=== PATIENT | female | born 1995 | race Caucasian/White ===

== ENCOUNTER → 2016-09-03 | Outpatient (CLI) | payer BC ==
[2016-09-03 11:22] LABS: ABSOLUTE EOSINOPHILS # (AUTO) 0.1 10^3/uL (0.0-0.6); ABSOLUTE LYMPHOCYTES (AUTO) 2.6 10^3/uL (0.5-4.7); ABSOLUTE MONOCYTES (AUTO) 0.6 10^3/uL (0.1-1.4); ABSOLUTE NEUT (AUTO) 3.7 10^3/uL (1.7-8.2); BASOPHILS % (AUTO) 0.6 % (0-2); EOSINOPHILS % (AUTO) 1.3 % (0-6); HEMOGLOBIN 13.2 g/dL (12.0-15.5); HGB HCT DIFFERENCE 1.6; LYMPHOCYTES % (AUTO) 37.4 % (13-45); MEAN CORPUSCULAR HEMOGLOBIN 29.4 pg (27.0-33.4); MEAN CORPUSCULAR HGB CONC 34.7 g/dL (32.0-36.0); MEAN CORPUSCULAR VOLUME 85 fl (80-97); MONOCYTES % (AUTO) 8.3 % (3-13); RED BLOOD COUNT 4.48 10^6/uL (3.72-5.28); RED CELL DISTRIBUTION WIDTH 13.2 % (11.5-14.0); SEGMENTED NEUTROPHILS % (AUTO) 52.4 % (42-78)
[2016-09-03 11:45] LABS: ALANINE AMINOTRANSFERASE 26 U/L (9-52); ALKALINE PHOSPHATASE 55 U/L (38-126); ANION GAP 14 (5-19); ASPARTATE AMINO TRANSFERASE 22 U/L (14-36); BILIRUBIN,TOTAL 0.8 mg/dL (0.2-1.3); BLOOD UREA NITROGEN 9 mg/dL (7-20); CALCIUM 9.9 mg/dL (8.4-10.2); CARBON DIOXIDE 25 mmol/L (22-30); CHLORIDE 105 mmol/L (98-107); CREATININE RESULT 0.69 mg/dL (0.52-1.25); GLUCOSE 71 mg/dL (75-110); LIPASE 126.6 U/L (23-300); POTASSIUM 4.4 mmol/L (3.6-5.0); SODIUM 144.1 mmol/L (137-145); TOTAL PROTEIN 7.9 g/dL (6.3-8.2)
== END ==
LOC: OD 10:03
PROVIDERS: ATTEND Surgery
DX: R10.9 Unspecified abdominal pain (principal)
CPT/HCPCS: 36415; 80053; 83690; 84702; 85025

== ENCOUNTER → 2016-09-08 | Outpatient (CLI) | payer BC | LOC: RAD 07:51 | PROVIDERS: ATTEND Surgery | DX: R10.9 Unspecified abdominal pain (principal) | CPT/HCPCS: 74160 ==

== ENCOUNTER → 2016-09-27 | Outpatient (CLI) | payer BC | LOC: RAD 16:44 | PROVIDERS: ATTEND Physician Assistant | DX: R10.30 Lower abdominal pain, unspecified (principal) | CPT/HCPCS: 76856; 93976 ==

== ENCOUNTER 2016-09-28 12:24 | Day surgery (SDC) | payer BC ==
[~2016-09-28 12:24] MED LIST: CEFAZOLIN SODIUM 1 GM in DEXTROSE 5%-WATER 50 ML IV PRN; DEXAMETHASONE SOD PHOSPHATE INJ 4 MG/1 ML VIAL ONE; GLYCOPYRROLATE INJ 0.4 MG/2 ML VIAL ONE; KETOROLAC TROMETHAMINE 60 MG/2 ML SDV ONE; LACTATED RINGERS 1000 ML IV PRN; LIDOCAINE 2% INJ-PF (20 MG/ML) 10 ML AMPUL ONE; METOCLOPRAMIDE HCL INJ/PF 10 MG/2 ML SDV ONE; NEOSTIGMINE METHYLSULFATE 10 MG/10 ML VIAL ONE; ONDANSETRON HCL INJ/PF 4 MG/2 ML SDV ONE; ROCURONIUM BROMIDE INJ 50 MG/5 ML VIAL IV ONE; SUCCINYLCHOLINE CHLORIDE INJ 200 MG/10 ML VIAL ONE
[2016-09-28] MEDS ORDERED: HYDROMORPHONE HCL INJ/PF 2 MG/ML AMPULE ONE (15:52)
[2016-09-28] MEDS ORDERED: ACETAMINOPHEN 100 ML IV ONE (15:53)
[2016-09-28] MEDS ORDERED: PROPOFOL INJ 200 MG/20 ML VIAL IV ONE (15:53)
[2016-09-28] MEDS ORDERED: EPHEDRINE SULFATE INJ 50 MG/1 ML AMPULE ONE (15:53)
[2016-09-28] MEDS ORDERED: MIDAZOLAM 2 MG/2 ML INJ ONE (15:53)
[2016-09-28] MEDS: BUPIVACAINE HCL 0.25 % INJ/PF (2.5 MG/1 ML) 30 ML VIAL ONE ×2 (16:19→16:29)
[2016-09-28] MEDS ORDERED: DIPHENHYDRAMINE HCL 50 MG/ML VIAL IV PRN (16:34)
[2016-09-28] MEDS ORDERED: FENTANYL CITRATE INJ/PF 100 MCG/2 ML AMPUL IV PRN ×3 (16:34)
[2016-09-28] MEDS ORDERED: MEPERIDINE HCL/PF INJ 25 MG/1 ML DISP.SYRIN IV PRN (16:34)
[2016-09-28] MEDS ORDERED: MORPHINE SULFATE 10 MG/ML INJ IV PRN (16:34)
[2016-09-28] MEDS ORDERED: OXYCODONE-ACETAMINOPHEN 5-325 MG TABLET PO PRN ×3 (16:34→17:12)
[2016-09-28] MEDS ORDERED: PROMETHAZINE HCL INJ 25 MG/1 ML VIAL IV PRN ×2 (16:34)
[2016-09-28] MEDS ORDERED: ONDANSETRON HCL INJ/PF 4 MG/2 ML SDV IV PRN ×2 (16:34→17:12)
--- NOTE | 2016-09-28 17:09 | Operative Report ---
Operative Report DATE OF SURGERY: 09/28/16 PREOPERATIVE DIAGNOSIS: Biliary dyskinesia POSTOPERATIVE DIAGNOSIS: Biliary dyskinesia OPERATION: Laparoscopic cholecystectomy SURGEON: SONYA GONZALEZ ANESTHESIA: GA TISSUE REMOVED OR ALTERED: gb COMPLICATIONS: None ESTIMATED BLOOD LOSS: minimal INTRAOPERATIVE FINDINGS: Distended gallbladder. Normal-appearing liver normal- appearing anterior surface of the stomach, normal-appearing large bowel other than moderate distention. Normal-appearing appendix. Normal-appearing bilateral ovaries. Normal-appearing anterior abdominal wall. Normal-appearing small bowel. PROCEDURE: Informed consent was obtained. Patient was brought to the operating room placed operating table in supine position. After satisfactory induction of general anesthesia, patient's abdomen was prepped and draped in usual sterile fashion. A infraumbilical midline incision was made and dissection carried down to the fascia the peritoneal cavity entered without difficulty. Prabhakar trocar was inserted. Pneumoperitoneum produced good patient toleration. 5 mm trocar was placed in the subxiphoid location.Two 5 mm trochars were placed in the right subcostal location. Exploratory laparoscopy was performed first. The anterior abdominal wall appeared normal. Liver appeared normal. The gallbladder appeared distended. The stomach and first and second portion the duodenum appeared normal other than some smiled gaseous distention. The spleen appeared normal. The small bowel was not run but the most of it was visualized and it appeared normal. The colon was moderately distended throughout that otherwise appeared normal. The appendix was visualized and appeared normal. Both of the ovaries were visualized and they appeared normal. The gallbladder was grasped and retracted cephalad over the dome of the liver. The infundibulum of the gallbladder was grasped retracted laterally and inferiorly thus exposing calot's triangle. The cystic duct gallbladder junction was clearly identified and the cystic duct was clipped and divided. Cystic artery was likewise taken. The gallbladder was taken off the gallbladder bed using the hook electrocautery technique. The gallbladder was removed with an Endobag through the Prabhakar trocar site fascial defect. There was no bile spillage during the case. Hemostasis appeared excellent. All trochars were removed under the direct vision a laparoscope to ensure hemostasis. The Prabhakar trocar site fascial defect was closed with interrupted Vicryl sutures. All skin incisions were closed with subcuticular interrupted Monocryl sutures. Marcaine was injected at the port sites. Patient tolerated procedure well no apparent complications and was taken to the recovery area in stable condition.
[2016-09-28] MEDS ORDERED: RINGERS SOLUTION,LACTATED 1,000 ML IV PRN (17:12)
--- NOTE | 2016-09-28 17:12 | PDOC DISCHARGE SUMMARY ---
Discharge Summary (SDC) - Discharge Final Diagnosis: Biliary dyskinesia Date of Surgery: 09/28/16 Discharge Date: 09/28/16 Condition: Good Treatment or Instructions: Underwent laparoscopic cholecystectomy. May discharge the patient home when met discharge criteria. Follow-up with me in 2 weeks. Stay active at home but avoid strenuous activity. May shower in 2 days. Keep Steri-Strips on. Prescriptions: Oxycodone HCl/Acetaminophen [Percocet 5-325 mg Tablet] 1 tab PO ASDIR PRN #25 tablet PRN Reason: Discharge Diet: As Tolerated Discharge Activity: Activity As Tolerated - Stay active but avoid strenuous activity. Report the Following to Your Physician Immediately: Yellow Skin, Fever over 101 Degrees, Unusual Bleeding, Redness, Drainage-Foul Smelling
[2016-09-28] MEDS ORDERED: FENTANYL CITRATE INJ/PF 100 MCG/2 ML AMPUL ONE (17:21)
[2016-09-28] MEDS ORDERED: PROMETHAZINE HCL INJ 25 MG/1 ML VIAL ONE (19:05)
[2016-09-28 19:44] VITALS: BP 127/81
== END 2016-09-28 19:40 | disposition home or self-care (01) ==
LOC: OROUT 12:24
PROVIDERS: ATTEND Surgery
PROC: 0FT44ZZ Resection of Gallbladder, Percutaneous Endoscopic Approach (ICD-10-PCS; principal; 2016-09-28 14:30)
DX: K82.8 Other specified diseases of gallbladder (principal); F17.210 Nicotine dependence, cigarettes, uncomplicated
CPT/HCPCS: 81025; 88304 ×2; 47562; J2250; J0690; J3490 ×2; J1100; J1885; J3010; J2765; J1170; J2550; J0330; J2405; J2704; J0131; 790

== ENCOUNTER 2016-09-30 13:44 | Observation (INO) | payer BC ==
[2016-09-30] MEDS ORDERED: ONDANSETRON 4 MG TAB.RAPDIS PO ONE (14:12)
--- NOTE | 2016-09-30 14:14 | ER Document Report ---
ED Medical Screen (RME) - General Stated Complaint: VOMITING Mode of Arrival: Ambulatory Information source: Patient, Parent Notes: 20 y/o F presents to ED c/o n/v and generalized weakness this morning. Reports hx of laparoscopic cholecystectomy on 09/28/16. I have greeted and performed a rapid initial assessment of this patient. A comprehensive ED assessment and evaluation of the patient, analysis of test results and completion of the medical decision making process will be conducted by additional ED providers. TRAVEL OUTSIDE OF THE [place] IN LAST 30 DAYS: No - Related Data Allergies/Adverse Reactions: strawberry Allergy (Severe, Verified 09/30/16 14:09) N AND V Past Medical History - Social History Chew tobacco use (# tins/day): No Frequency of alcohol use: None Drug Abuse: None - Past Medical History Cardiac Medical History: Denies: Hx Coronary Artery Disease, Hx Heart Attack, Hx Hypertension Pulmonary Medical History: Denies: Hx Asthma, Hx Bronchitis, Hx COPD, Hx Pneumonia Neurological Medical History: Denies: Hx Cerebrovascular Accident, Hx Seizures Renal/ Medical History: Denies: Hx Peritoneal Dialysis GI Medical History: Reports: Hx Gastroesophageal Reflux Disease Musculoskeltal Medical History: Denies Hx Arthritis Past Surgical History: Denies: Hx Hysterectomy - Immunizations Immunizations up to date: Yes Hx Diphtheria, Pertussis, Tetanus Vaccination: No Physical Exam - Vital signs Vitals: Temp Pulse Resp BP Pulse Ox 97.7 F 79 16 115/70 98 09/30/16 14:07 09/30/16 14:07 09/30/16 14:09/30/16 14:07 09/30/16 14:07 - General General appearance: Alert In distress: None - Respiratory Respiratory status: No respiratory distress Course - Vital Signs Vital signs: Temp Pulse Resp BP Pulse Ox 97.7 F 79 16 115/70 98 09/30/16 14:07 09/30/16 14:09/30/16 14:09/30/16 14:07 09/30/16 14:07
[2016-09-30 14:43] LABS: ABSOLUTE EOSINOPHILS # (AUTO) 0.1 10^3/uL (0.0-0.6); ABSOLUTE LYMPHOCYTES (AUTO) 1.3 10^3/uL (0.5-4.7); ABSOLUTE MONOCYTES (AUTO) 0.4 10^3/uL (0.1-1.4); ABSOLUTE NEUT (AUTO) 3.9 10^3/uL (1.7-8.2); BASOPHILS % (AUTO) 0.5 % (0-2); EOSINOPHILS % (AUTO) 1.1 % (0-6); HEMATOCRIT 34.2 % (36.0-47.0); HEMOGLOBIN 11.8 g/dL (12.0-15.5); HGB HCT DIFFERENCE 1.2; LYMPHOCYTES % (AUTO) 23.5 % (13-45); MEAN CORPUSCULAR HEMOGLOBIN 29.9 pg (27.0-33.4); MEAN CORPUSCULAR HGB CONC 34.5 g/dL (32.0-36.0); MEAN CORPUSCULAR VOLUME 87 fl (80-97); MONOCYTES % (AUTO) 7.3 % (3-13); RED BLOOD COUNT 3.95 10^6/uL (3.72-5.28); RED CELL DISTRIBUTION WIDTH 13.6 % (11.5-14.0); SEGMENTED NEUTROPHILS % (AUTO) 67.6 % (42-78); WHITE BLOOD COUNT 5.7 10^3/uL (4.0-10.5)
[2016-09-30 14:54] LABS: APPEARANCE,URINE SLIGHTLY-CLOUDY; BILIRUBIN,URINE NEGATIVE (NEGATIVE); GLUCOSE, URINE NEGATIVE (NEGATIVE); KETONES,URINE NEGATIVE (NEGATIVE); LEUKOCYTE ESTERASE,URINE NEGATIVE (NEGATIVE); NITRITE,URINE NEGATIVE (NEGATIVE); PROTEIN,URINE NEGATIVE (NEGATIVE); URINE SPECIFIC GRAVITY 1.012
[2016-09-30 14:55] LABS: ALANINE AMINOTRANSFERASE 274 U/L (9-52); ALBUMIN 4.4 g/dL (3.5-5.0); ALKALINE PHOSPHATASE 65 U/L (38-126); ANION GAP 12 (5-19); ASPARTATE AMINO TRANSFERASE 355 U/L (14-36); BILIRUBIN,TOTAL 1.1 mg/dL (0.2-1.3); BLOOD UREA NITROGEN 7 mg/dL (7-20); CALCIUM 9.4 mg/dL (8.4-10.2); CARBON DIOXIDE 27 mmol/L (22-30); CHLORIDE 106 mmol/L (98-107); CREATININE RESULT 0.66 mg/dL (0.52-1.25); GLUCOSE 90 mg/dL (75-110); POTASSIUM 3.7 mmol/L (3.6-5.0); SODIUM 144.9 mmol/L (137-145); TOTAL PROTEIN 6.7 g/dL (6.3-8.2)
[2016-09-30] MEDS ORDERED: NORMAL SALINE 1000 ML 2,000 ML IV ONE (15:25)
--- NOTE | 2016-09-30 15:38 | ER Document Report ---
ED GI/ - General Chief Complaint: Vomiting Stated Complaint: VOMITING Mode of Arrival: Ambulatory Information source: Patient TRAVEL OUTSIDE OF THE [place] IN LAST 30 DAYS: No - HPI Patient complains to provider of: Abdominal pain, Vomiting Onset: This morning Timing/Duration: Gradual Quality of pain: Dull, Other - SORENESS Severity at maximum: Moderate Severity in ED: Moderate Context: Other - LAP. SANDY 3 DAYS AGO Location: Epigastric Associated symptoms: Nausea, Vomiting Exacerbated by: Food Relieved by: Denies Similar symptoms previously: No Recently seen / treated by doctor: Yes - LAP. SANDY 09/27 - Related Data Allergies/Adverse Reactions: strawberry Allergy (Severe, Verified 09/30/16 14:09) N AND V Past Medical History - General Information source: Patient, Parent - Social History Smoking Status: Current Every Day Smoker Chew tobacco use (# tins/day): No Smoking Education Provided: No Frequency of alcohol use: None Drug Abuse: None Lives with: Parents Family History: Reviewed & Not Pertinent Patient has suicidal ideation: No Patient has homicidal ideation: No - Past Medical History Cardiac Medical History: Denies: Hx Coronary Artery Disease, Hx Heart Attack, Hx Hypertension Pulmonary Medical History: Denies: Hx Asthma, Hx Bronchitis, Hx COPD, Hx Pneumonia Neurological Medical History: Denies: Hx Cerebrovascular Accident, Hx Seizures Endocrine Medical History: Reports: None Renal/ Medical History: Denies: Hx Peritoneal Dialysis GI Medical History: Reports: Hx Gastroesophageal Reflux Disease Musculoskeltal Medical History: Denies Hx Arthritis Past Surgical History: Reports: Hx Cholecystectomy. Denies: Hx Hysterectomy - Immunizations Immunizations up to date: Yes Hx Diphtheria, Pertussis, Tetanus Vaccination: No Review of Systems - Review of Systems Constitutional: No symptoms reported. denies: Chills, Fever EENT: No symptoms reported Cardiovascular: No symptoms reported Respiratory: No symptoms reported Gastrointestinal: See HPI Genitourinary: No symptoms reported Female Genitourinary: No symptoms reported Musculoskeletal: No symptoms reported Skin: No symptoms reported Neurological/Psychological: No symptoms reported Physical Exam - Vital signs Vitals: Temp Pulse Resp BP Pulse Ox 97.7 F 79 16 115/70 98 09/30/16 14:07 09/30/16 14:07 09/30/16 14:07 09/30/16 14:07 09/30/16 14:07 Interpretation: Normal. No: Tachycardic, Tachypneic, Febrile - General General appearance: Appears well, Alert In distress: None - HEENT Head: Normocephalic Eyes: Pale conjunctiva Ears: Normal Nasal: Normal Mouth/Lips: Normal Mucous membranes: Normal Pharynx: Normal Neck: Normal - Respiratory Respiratory status: No respiratory distress Breath sounds: Normal - Cardiovascular Rhythm: Regular Heart sounds: Normal auscultation Murmur: No - Abdominal Inspection: Fresh incision - x 4, HEALING Distension: No distension Bowel sounds: Hypoactive Tenderness: Tender - MILD, EPIGASTRIC - Extremities General upper extremity: Normal inspection General lower extremity: Normal inspection - Neurological Neuro grossly intact: Yes Cognition: Normal Orientation: AAOx4 - Psychological Associated symptoms: Normal affect, Normal mood - Skin Skin Temperature: Warm Skin Moisture: Dry Skin Color: Pale Skin Turgor: Elastic Course - Vital Signs Vital signs: Temp Pulse Resp BP Pulse Ox 98.6 F 79 18 114/76 98 09/30/16 19:08 09/30/16 19:08 09/30/16 19:08 09/30/16 19:08 09/30/16 19:08 - Laboratory Result Diagrams: 09/30/16 14:15 09/30/16 14:15 Laboratory results interpreted by me: 09/30/16 09/30/16 09/30/16 14:15 14:15 14:15 Hgb 11.8 L Hct 34.2 L AST 355 H ALT 274 H Urine Blood MODERATE H Urine Urobilinogen 2.0 H - Consults DR. GONZALEZ Time consulted: 16:30 Reason for consultation: 09/30/16 16:35 CASE DISCUSSED, HE SUGGESTS CT SCAN & CALL RESULTS. Discharge - Discharge Clinical Impression: Postoperative vomiting, Dehydration Condition: Good Disposition: ADMITTED OBSERVATION Admitting Provider: Surgicalist Unit Admitted: Surgical Floor
[2016-09-30] MEDS ORDERED: METOCLOPRAMIDE HCL 10 MG TABLET PO ONE (16:43)
[2016-09-30] MEDS ORDERED: METOCLOPRAMIDE HCL INJ/PF 10 MG/2 ML SDV IV ONE (16:59)
[2016-09-30] MEDS ORDERED: DIPHENHYDRAMINE HCL 50 MG/ML VIAL IV ONE (16:59)
[2016-09-30] MEDS ORDERED: HYDROMORPHONE HCL INJ/PF 2 MG/ML AMPULE IV ONE (18:56)
[2016-09-30] MEDS ORDERED: NA PHOS,M-B/NA PHOS,DI-BA (ADULT) 133 ML ENEMA PR SCH (21:00)
--- NOTE | 2016-09-30 21:03 | PDOC H&P ---
History of Present Illness Admission Date/PCP: CARRILLO MONZON PA-C History of Present Illness: KRIS GEE is a 20 year old female Status post laparoscopic cholecystectomy for biliary dyskinesia earlier this week. She did well initially however today noted upper abdominal discomfort the along with the multiple episodes of nausea and vomiting. She has not had a bowel movement since surgery. She denies any fever. Currently she is mainly sore in her upper abdomen due to her emesis. She denies any alcohol intake. She has been taking 1 Percocet about every 4 hours for pain. No additional pain medications. Past Medical History Cardiac Medical History: Denies: Coronary Artery Disease, Myocardial Infarction, Hypertension Pulmonary Medical History: Denies: Asthma, Bronchitis, Chronic Obstructive Pulmonary Disease (COPD), Pneumonia Neurological Medical History: Denies: Seizures Endocrine Medical History: Reports: None GI Medical History: Reports: Gastroesophageal Reflux Disease - History of gastritis noted the last year but no response with medications, Other - History of biliary dyskinesia. Status post laparoscopic cholecystectomy. Musculoskeltal Medical History: Denies: Arthritis Hematology: Denies: Anemia Past Surgical History Past Surgical History: Reports: Cholecystectomy Denies: Hysterectomy Social History Lives with: Parents Smoking Status: Current Every Day Smoker Family History Family History: Reviewed & Not Pertinent Parental Family History Reviewed: No Children Family History Reviewed: No Sibling(s) Family History Reviewed.: No Medication/Allergy Home Medications: Ondansetron [Zofran Odt 4 mg Tablet] 1 - 2 tab PO Q4HP PRN #10 tab.rapdis Medroxyprogesterone Acet [Depo-Provera Inj 150 mg/1 ml Vial] 150 mg IM ASDIR PRN 09/23/16 Naproxen Sodium [Aleve] 220 mg PO PRN PRN 09/23/16 Oxycodone HCl/Acetaminophen [Percocet 5-325 mg Tablet] 1 tab PO ASDIR PRN #25 tablet 09/28/16 Allergies/Adverse Reactions: strawberry Allergy (Severe, Verified 09/30/16 14:09) N AND V Physical Exam Vital Signs: Temp Pulse Resp BP Pulse Ox 98.6 F 79 18 114/76 98 09/30/16 19:08 09/30/16 19:08 09/30/16 19:08 09/30/16 19:08 09/30/16 19:08 Intake & Output 09/29/16 09/30/16 10/01/16 06:59 06:59 06:59 Weight 45.3 kg General appearance: PRESENT: no acute distress, cooperative Eye exam: PRESENT: other - Sclera anicteric Respiratory exam: PRESENT: clear to auscultation perfecto Cardiovascular exam: PRESENT: RRR GI/Abdominal exam: PRESENT: other - Soft, mild tenderness in the upper abdomen but no peritoneal signs. Wounds clean dry and intact, nondistended Extremities exam: PRESENT: other - No swelling Neurological exam: PRESENT: alert, awake Psychiatric exam: PRESENT: appropriate affect Skin exam: PRESENT: warm Results Laboratory Results: 09/30/16 14:15 09/30/16 14:15 09/30/16 09/30/16 09/30/16 14:15 14:15 14:15 WBC 5.7 RBC 3.95 Hgb 11.8 L Hct 34.2 L MCV 87 MCH 29.9 MCHC 34.5 RDW 13.6 Plt Count 199 Seg Neutrophils % 67.6 Lymphocytes % 23.5 Monocytes % 7.3 Eosinophils % 1.1 Basophils % 0.5 Absolute Neutrophils 3.9 Absolute Lymphocytes 1.3 Absolute Monocytes 0.4 Absolute Eosinophils 0.1 Absolute Basophils 0.0 Sodium 144.9 Potassium 3.7 Chloride 106 Carbon Dioxide 27 Anion Gap 12 BUN 7 Creatinine 0.66 Est GFR ( Amer) > 60 Est GFR (Non-Af Amer) > 60 Glucose 90 Calcium 9.4 Total Bilirubin 1.1 AST 355 H ALT 274 H Alkaline Phosphatase 65 Total Protein 6.7 Albumin 4.4 Lipase 67.0 Urine Color YELLOW Urine Appearance SLIGHTLY-CLOUDY Urine pH 6.0 Ur Specific Concepcion 1.012 Urine Protein NEGATIVE Urine Glucose (UA) NEGATIVE Urine Ketones NEGATIVE Urine Blood MODERATE H Urine Nitrite NEGATIVE Ur Leukocyte Esterase NEGATIVE Urine WBC (Auto) 3 Urine RBC (Auto) 1 Impressions: Abdomen CT 09/30/16 16:30 IMPRESSION: Expected postsurgical changes from recent cholecystectomy. No abscess or fluid collection. Assessment & Plan - Diagnosis (1) Nausea & vomiting Is this a current diagnosis for this admission?: YesPlan: Of unclear etiology. CT scan demonstrates postoperative changes only with no evidence of bile leak (no fluid in the felipe-hepatic region) and no biliary ductal dilatation. Her transaminases are elevated. I believe that sphincter of ODDI spasm is certainly in the differential diagnosis. I will admit the patient place her on IV fluids. I will obtain gastroenterology consultation if gastroenterology is available. Will repeat her liver function studies tomorrow morning. Will keep her nothing by mouth for now. Patient is constipated; therefore will give her a fleets enema tonight.
[2016-09-30] MEDS: DEXTROSE 5%-1/2 NORMAL SALINE 1,000 ML IV PRN (21:10)
[2016-09-30] MEDS: PANTOPRAZOLE SODIUM 40 MG VIAL IV SCH (22:48)
[2016-10-01] MEDS: HYDROMORPHONE HCL INJ/PF 2 MG/ML AMPULE IV PRN ×3 (03:32→14:46)
[2016-10-01] MEDS: DEXTROSE 5%-1/2 NORMAL SALINE 1,000 ML IV PRN (03:34)
[2016-10-01 07:31] LABS: ALBUMIN 3.8 g/dL (3.5-5.0); ANION GAP 9 (5-19); BLOOD UREA NITROGEN 3 mg/dL (7-20); CALCIUM 9.2 mg/dL (8.4-10.2); CARBON DIOXIDE 26 mmol/L (22-30); CHLORIDE 108 mmol/L (98-107); CREATININE RESULT 0.59 mg/dL (0.52-1.25); GLUCOSE 88 mg/dL (75-110); POTASSIUM 3.7 mmol/L (3.6-5.0); SODIUM 143.4 mmol/L (137-145); TOTAL PROTEIN 6.3 g/dL (6.3-8.2)
[2016-10-01 07:32] LABS: ALANINE AMINOTRANSFERASE 365 U/L (9-52); ALKALINE PHOSPHATASE 85 U/L (38-126); ASPARTATE AMINO TRANSFERASE 279 U/L (14-36); BILIRUBIN,TOTAL 1.2 mg/dL (0.2-1.3)
--- NOTE | 2016-10-01 08:51 | PDOC PROGRESS REPORT ---
Subjective Progress Note for:: 10/01/16 Subjective:: Feels much better. Mild upper abdominal discomfort. Nausea vomiting has resolved. Physical Exam Vital Signs: Temp Pulse Resp BP Pulse Ox 98.1 F 75 16 109/77 100 10/01/16 03:26 10/01/16 03:26 10/01/16 03:26 10/01/16 03:26 10/01/16 03:26 Intake & Output 09/30/16 10/01/16 10/02/16 06:59 06:59 06:59 Intake Total 0 Balance 0 General appearance: PRESENT: no acute distress Respiratory exam: PRESENT: clear to auscultation perfecto Cardiovascular exam: PRESENT: RRR GI/Abdominal exam: PRESENT: other - Soft, nondistended, mild upper abdominal tenderness no peritoneal signs. Results Laboratory Results: 10/01/16 06:56 10/01/16 06:56 Sodium 143.4 Potassium 3.7 Chloride 108 H Carbon Dioxide 26 Anion Gap 9 BUN 3 L Creatinine 0.59 Est GFR ( Amer) > 60 Est GFR (Non-Af Amer) > 60 Glucose 88 Calcium 9.2 Total Bilirubin 1.2 AST 279 H ALT 365 H Alkaline Phosphatase 85 Total Protein 6.3 Albumin 3.8 Impressions: Abdomen CT 09/30/16 16:30 IMPRESSION: Expected postsurgical changes from recent cholecystectomy. No abscess or fluid collection. Assessment & Plan - Diagnosis (1) Nausea & vomiting Is this a current diagnosis for this admission?: YesPlan: Symptomatically markedly improved. However her transaminases are still elevated. I will attempt to get a insurance claim auditor to see the patient today for possible sphincter of Oddi spasm. If the gastroenterology is not available today will allow the patient to eat and if she tolerates by mouth intake well we 'll plan to discharge patient home with outpatient evaluation with gastroenterology.
[2016-10-01] MEDS: PANTOPRAZOLE SODIUM 40 MG VIAL IV SCH (09:27)
[2016-10-01] MEDS: ONDANSETRON HCL INJ/PF 4 MG/2 ML SDV IV PRN ×2 (09:31→14:46)
[2016-10-01 12:38] VITALS: BP 119/67
--- NOTE | 2016-10-01 12:58 | DISCHARGE SUMMARY E ---
Discharge Summary NAME: KRIS GEE : 1995 AGE: 20Y ADMITTED: 09/30/2016 DISCHARGED: 10/01/2016 TRANSFER DIAGNOSES: 1. Nausea and vomiting. 2. Elevated liver function studies. 3. Possible sphincter of Oddi spasm. HOSPITAL COURSE: The patient was admitted, placed on IV fluids. She initially got much better with marked improvement of her abdominal pain and resolution of her nausea and vomiting. Gastroenterology was not available at our hospital and will not be available until late next week. Later this morning she developed nausea and vomiting again. The family requested transfer to [facility]. I discussed the case with Dr. Archer at [facility] who has agreed to take the patient in transfer. The patient had an uneventful laparoscopic cholecystectomy earlier this week. She had initially done well, but developed nausea and vomiting, and upper abdominal pain yesterday. She was brought in for evaluation. Abdominal pelvic CT scan demonstrated only postoperative changes with no fluid at the gallbladder fossa and no fluid in the perihepatic region, and no evidence of biliary ductal dilatation. He was noted with elevated transaminases in the 300s, although her total bilirubin and her alkaline phosphatase was normal. Followup laboratory studies the day after admission demonstrated persistent elevation of her transaminases. With these findings, I felt that she needed an ERCP. Unfortunately, the endoscopist who performs that procedure at our hospital [place] the [place]. She is now being transferred to [facility] in stable condition. TRANSFER MEDICATIONS: 1. Zofran 4 mg IV q.4 hours p.r.n. nausea. 2. Dilaudid 0.5 mg IV q.3 hours p.r.n. pain. 3. D5 1/2 normal saline at 100 mL an hour. DICTATING PHYSICIAN: WESLEY GONZALEZ M.D. [id number] [id number] ID: [id number] JOB#: [id number] ACCT: [id number] cc:WESLEY GONZALEZ M.D. > [facility]
== END 2016-10-01 15:36 | disposition short-term general hospital (02) ==
LOC: ER 13:44 → EH 20:48 → UNDOADMOB 21:27 → 2N 22:27
PROVIDERS: ADMIT Surgery; ATTEND Surgery
DX: R11.2 Nausea with vomiting, unspecified (principal); R79.89 Other specified abnormal findings of blood chemistry; K21.9 Gastro-esophageal reflux disease without esophagitis; F17.210 Nicotine dependence, cigarettes, uncomplicated
CPT/HCPCS: 99285; 96361; 96375; 96365; 36415 ×2; 83690; 85025; 81025; 80053 ×2; 81001; 74160; G0378 ×2; J1200; S0119; J2765; J1170 ×2; S0164 ×2; J2405; J7030

== ENCOUNTER → 2016-11-18 | Outpatient (CLI) | payer SELFPAY ==
[2016-11-18 20:09] LABS: CHLAM PCR NOT DETECTED (NOT DETECT)
== END ==
LOC: LAB 18:19
PROVIDERS: ATTEND Nurse Practitioner Acute Care
DX: R30.0 Dysuria (principal)
CPT/HCPCS: 87210; 87491; 87591

== ENCOUNTER 2017-04-07 11:44 | Emergency (ER) | payer OTHER, BC ==
[2017-04-07 11:57] VITALS: BP 108/68
[2017-04-07] MEDS ORDERED: IBUPROFEN 600 MG TABLET PO ONE (12:21)
[2017-04-07] MEDS ORDERED: CYCLOBENZAPRINE HCL 10 MG TABLET PO ONE (12:21)
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
== END 2017-04-07 12:30 | disposition home or self-care (01) ==
LOC: ER 11:44
DX: S16.1XXA Strain of muscle, fascia and tendon at neck level, initial encounter (principal); M54.5 Low back pain; V43.52XA Car driver injured in collision with other type car in traffic accident, initial encounter; Z71.6 Tobacco abuse counseling; F41.9 Anxiety disorder, unspecified; F17.210 Nicotine dependence, cigarettes, uncomplicated
CPT/HCPCS: 99283

== ENCOUNTER 2017-04-08 15:29 | Emergency (ER) | payer OTHER, BC ==
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
[2017-04-08 16:27] LABS: APPEARANCE,URINE CLEAR; BILIRUBIN,URINE NEGATIVE (NEGATIVE); GLUCOSE, URINE NEGATIVE (NEGATIVE); KETONES,URINE NEGATIVE (NEGATIVE); LEUKOCYTE ESTERASE,URINE NEGATIVE (NEGATIVE); NITRITE,URINE NEGATIVE (NEGATIVE); PROTEIN,URINE NEGATIVE (NEGATIVE); URINE SPECIFIC GRAVITY 1.006; UROBILINOGEN,URINE NEGATIVE mg/dL (<2.0)
[2017-04-08] MEDS ORDERED: IBUPROFEN 800 MG TABLET PO ONE (16:36)
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
[2017-04-08 17:48] VITALS: BP 102/60
== END 2017-04-08 17:48 | disposition home or self-care (01) ==
LOC: ER 15:29
DX: R10.2 Pelvic and perineal pain (principal); R10.9 Unspecified abdominal pain; V87.7XXA Person injured in collision between other specified motor vehicles (traffic), initial encounter
CPT/HCPCS: 76856; 81001; 99284

== ENCOUNTER 2017-05-06 08:09 | Emergency (ER) | payer BC, OTHER ==
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
[2017-05-06] MEDS ORDERED: NORMAL SALINE 1,000 ML IV ONE (08:42)
[2017-05-06] MEDS ORDERED: ONDANSETRON HCL INJ/PF 4 MG/2 ML SDV IV ONE (08:44)
[2017-05-06 08:56] LABS: ABSOLUTE EOSINOPHILS # (AUTO) 0.6 10^3/uL (0.0-0.6); ABSOLUTE LYMPHOCYTES (AUTO) 0.8 10^3/uL (0.5-4.7); ABSOLUTE MONOCYTES (AUTO) 0.5 10^3/uL (0.1-1.4); BASOPHILS % (AUTO) 0.2 % (0-2); EOSINOPHILS % (AUTO) 8.9 % (0-6); HEMATOCRIT 39.1 % (36.0-47.0); HEMOGLOBIN 13.8 g/dL (12.0-15.5); HGB HCT DIFFERENCE 2.3; MEAN CORPUSCULAR HEMOGLOBIN 30.8 pg (27.0-33.4); MEAN CORPUSCULAR HGB CONC 35.2 g/dL (32.0-36.0); MEAN CORPUSCULAR VOLUME 88 fl (80-97); MONOCYTES % (AUTO) 7.6 % (3-13); RED BLOOD COUNT 4.47 10^6/uL (3.72-5.28); RED CELL DISTRIBUTION WIDTH 12.9 % (11.5-14.0); SEGMENTED NEUTROPHILS % (AUTO) 71.3 % (42-78)
[2017-05-06 09:06] LABS: ALANINE AMINOTRANSFERASE 132 U/L (9-52); ALBUMIN 4.6 g/dL (3.5-5.0); ALKALINE PHOSPHATASE 74 U/L (38-126); ANION GAP 10 (5-19); ASPARTATE AMINO TRANSFERASE 71 U/L (14-36); BILIRUBIN,DIRECT 0.3 mg/dL (0.0-0.4); BILIRUBIN,TOTAL 0.7 mg/dL (0.2-1.3); BLOOD UREA NITROGEN 10 mg/dL (7-20); CALCIUM 9.5 mg/dL (8.4-10.2); CARBON DIOXIDE 26 mmol/L (22-30); CHLORIDE 105 mmol/L (98-107); GLUCOSE 84 mg/dL (75-110); LIPASE 54.8 U/L (23-300); POTASSIUM 4.4 mmol/L (3.6-5.0); SODIUM 141.2 mmol/L (137-145); TOTAL PROTEIN 7.6 g/dL (6.3-8.2)
[2017-05-06 09:31] LABS: APPEARANCE,URINE SLIGHTLY-CLOUDY; BILIRUBIN,URINE NEGATIVE (NEGATIVE); GLUCOSE, URINE NEGATIVE (NEGATIVE); KETONES,URINE 20 mg/dL (NEGATIVE); LEUKOCYTE ESTERASE,URINE NEGATIVE (NEGATIVE); NITRITE,URINE NEGATIVE (NEGATIVE); PROTEIN,URINE 30 mg/dL (NEGATIVE); URINE SPECIFIC GRAVITY 1.025
[2017-05-06] MEDS ORDERED: METOCLOPRAMIDE HCL INJ/PF 10 MG/2 ML SDV IV ONE (10:13)
[2017-05-06 11:30] VITALS: BP 100/54
== END 2017-05-06 10:45 | disposition home or self-care (01) ==
LOC: ER 08:09
DX: R11.2 Nausea with vomiting, unspecified (principal); R10.84 Generalized abdominal pain; R68.83 Chills (without fever); R51 Headache; Z90.49 Acquired absence of other specified parts of digestive tract; Z87.19 Personal history of other diseases of the digestive system
CPT/HCPCS: 99284; 96374; 96375; 36415; 83690; 85025; 81025; 80053; 81001; J2765; J2405; J7040

== ENCOUNTER → 2017-07-25 | Outpatient (CLI) | payer OTHER ==
[2017-07-26 13:33] LABS: CHLAM PCR NOT DETECTED (NOT DETECT)
== END ==
LOC: LAB 14:10
PROVIDERS: ATTEND Nurse Practitioner Acute Care
DX: N89.8 Other specified noninflammatory disorders of vagina (principal); R30.0 Dysuria
CPT/HCPCS: 87086; 87210; 87491; 87591

== ENCOUNTER 2017-07-30 19:49 | Emergency (ER) | payer BC, OTHER ==
[2017-07-30 19:58] VITALS: BP 115/65
--- NOTE | 2017-07-30 20:26 | ER Document Report ---
HPI - HPI Pain Level: 4 Notes: Patient is a 21-year-old female presents ED complaining of vaginal itching, scant discharge, discomfort with urination 5-6 days. Patient states that she was evaluated by her PCM on Tuesday for the same symptoms and was told that she had bacterial vaginosis with negative STD testing and a possible UTI. Patient states that she was sent home on clindamycin, which did not seem to be helping with her vaginal discharge. Patient denies any recent sexual intercourse. Patient states that she is otherwise eating and drinking without any difficulties. She is having normal bowel movements. Patient has not been having any other pain. Patient denies any IV drug use. Denies any headache, fever, expect URI, sore throat, chest pain, palpitations, syncope, cough, shortness of breath, wheeze, dyspnea, abdominal pain, nausea/vomiting/diarrhea, urinary retention, hematuria, loss of control of bowel or bladder, back pain, or rash. Pt states she has a h/o BV almost once monthly and does go to the women's clinic. Pt states she had a pelvic exam performed on Tuesday as well for her symptoms. - ROS Notes: REVIEW OF SYSTEMS: CONSTITUTIONAL : Denies fever, chills, or sweats. Denies recent illness. EENT: Denies eye, ear, throat, or mouth pain or symptoms. Denies nasal or sinus congestion or discharge. Denies throat, tongue, or mouth swelling or difficulty swallowing. CARDIOVASCULAR: Denies chest pain. Denies palpitations or racing or irregular heart beat. Denies ankle edema. RESPIRATORY: Denies cough, cold, or chest congestion. Denies shortness of breath, difficulty breathing, or wheezing. GASTROINTESTINAL: Denies abdominal pain or distention. Denies nausea, vomiting , or diarrhea. Denies blood in vomitus, stools, or per rectum. Denies black, tarry stools. Denies constipation. GENITOURINARY: see hpi FEMALE GENITOURINARY: see hpi MUSCULOSKELETAL: Denies back or neck pain or stiffness. Denies joint pain or swelling. SKIN: Denies rash, lesions or sores. NEUROLOGICAL: Denies confusion or altered mental status. Denies passing out or loss of consciousness. Denies dizziness or lightheadedness. Denies headache. Denies weakness or paralysis or loss of use of either side. Denies problems with gait or speech. Denies sensory loss, numbness, or tingling. ALL OTHER SYSTEMS REVIEWED AND NEGATIVE. Dictation was performed using [employer] voice recognition software - REPRODUCTIVE Reproductive: DENIES: : Past Medical History - Social History Smoking Status: Never Smoker Family History: Arthritis, COPD, DM, Malignancy, Other - chf Patient has suicidal ideation: No Patient has homicidal ideation: No - Past Medical History Cardiac Medical History: Denies: Hx Coronary Artery Disease, Hx Heart Attack, Hx Hypertension Pulmonary Medical History: Denies: Hx Asthma, Hx Bronchitis, Hx COPD, Hx Pneumonia Neurological Medical History: Denies: Hx Cerebrovascular Accident, Hx Seizures Renal/ Medical History: Reports: Hx Ovarian Cysts. Denies: Hx Peritoneal Dialysis GI Medical History: Reports: Hx Gastroesophageal Reflux Disease, Hx Colonoscopy , Hx Endoscopic Retrograde Cholangio Musculoskeltal Medical History: Denies Hx Arthritis Psychiatric Medical History: Reports: Hx Anxiety, Hx Attention Deficit Hyperactivity Disorder Past Surgical History: Reports: Hx Cholecystectomy. Denies: Hx Hysterectomy - Immunizations Immunizations up to date: Yes Hx Diphtheria, Pertussis, Tetanus Vaccination: No Vertical Provider Document - CONSTITUTIONAL Agree With Documented VS: Yes Notes: PHYSICAL EXAMINATION: GENERAL: Well-appearing, well-nourished and in no acute distress. A&Ox4 HEAD: Atraumatic, normocephalic. EYES: Pupils equal round and reactive to light, extraocular movements intact, sclera anicteric, conjunctiva are normal. ENT: EAC clear b/l. TM's intact b/l without erythema, fluid, or perforation. Nares patent and without discharge. oropharynx clear without exudates. No tonsilar hypertrophy or erythema. Moist mucous membranes. No sinus tenderness. NECK: Normal range of motion, supple without lymphadenopathy LUNGS: Breath sounds clear to auscultation bilaterally and equal. No wheezes rales or rhonchi. HEART: Regular rate and rhythm without murmurs, rubs, gallops. ABDOMEN: Soft, nontender, nondistended abdomen. No guarding, no rebound. No masses appreciated. Normal bowel sounds present. No CVA tenderness bilaterally. Musculoskeletal: FROM to passive/active. Strength 5+/5. Extremities: No cyanosis, clubbing, or edema b/l. Peripheral pulses 2+. Capillary refill less than 3 seconds. NEUROLOGICAL: Normal speech, normal gait. Normal sensory, motor exams PSYCH: Normal mood, normal affect. SKIN: Warm, Dry, normal turgor, no rashes or lesions noted. - INFECTION CONTROL TRAVEL OUTSIDE OF THE [place] IN LAST 30 DAYS: No - RESPIRATORY O2 Sat by Pulse Oximetry: 99 Course - Re-evaluation Re-evalutation: 07/30/17 20:39 Patient is an afebrile, well-hydrated, 21-year-old female who presents ED with bacterial vaginosis. Vitals are stable. PE is otherwise unremarkable. Patient performed a self swab for the wet mount as she had a pelvic exam performed on Tuesday and unremarkable workup otherwise (see hpi) including neg hcg. Patient states that she cannot tolerate metronidazole p.o. which is why she was on clindamycin. I will send her home with topical metronidazole to place intravaginally. Urinalysis was otherwise unremarkable at this time. Urine cultures pending. I will send her home with a prescription for Pyridium as well. Recheck with your PCM/women's clinic in 3-5 days. Return to the ED with any worsening/concerning symptoms otherwise as reviewed in discharge. Patient is in agreement. - Vital Signs Vital signs: Temp Pulse Resp BP Pulse Ox 98.1 F 81 18 115/65 99 07/30/17 19:57 07/30/17 19:57 07/30/17 19:57 07/30/17 19:57 07/30/17 19:57 Discharge - Discharge Clinical Impression: Bacterial vaginosis Condition: Stable Disposition: HOME, SELF-CARE Instructions: Metronidazole ([facility]) Additional Instructions: Maintain adequate fluid intake proper hygienic technique Tylenol/ibuprofen if needed Take medications as directed Use cream as directed Monitor for any worsening symptoms recheck with your PCM in 3-5 days Recheck with the women's clinic next week Return to the ED with any worsening symptoms and/or development of fever, headache, chest pain, palpitations, syncope, shortness of breath, trouble breathing, abdominal pain, n/v/d, blood in stool/urine, worsening vaginal/ pelvic pain or other worsening symptoms that are concerning to you. Prescriptions: Metronidazole [Metrogel 0.75% Vaginal Gel] 1 applic PV DAILY #1 tube Phenazopyridine HCl [Pyridium 200 mg Tablet] 200 mg PO TID #6 tablet Referrals: [facility] [Provider Group] - Follow up in 3-5 days CARRILLO OMNZON PA-C [Primary Care Provider] - Follow up in 3-5 days
[2017-07-30 20:31] LABS: APPEARANCE,URINE CLEAR; BILIRUBIN,URINE NEGATIVE (NEGATIVE); GLUCOSE, URINE NEGATIVE (NEGATIVE); KETONES,URINE NEGATIVE (NEGATIVE); LEUKOCYTE ESTERASE,URINE TRACE (NEGATIVE); NITRITE,URINE NEGATIVE (NEGATIVE); PROTEIN,URINE NEGATIVE (NEGATIVE); URINE SPECIFIC GRAVITY 1.011; UROBILINOGEN,URINE NEGATIVE mg/dL (<2.0)
[2017-07-30 20:34] LABS: BACTERIA,URINE 4+ /HPF; RBC,URINE 0-1 /HPF
== END 2017-07-30 21:16 | disposition home or self-care (01) ==
LOC: ER 19:49
DX: N76.0 Acute vaginitis (principal); B96.89 Other specified bacterial agents as the cause of diseases classified elsewhere
CPT/HCPCS: 81001; 87086; 87210; 99283

== ENCOUNTER 2017-10-29 21:28 | Emergency (ER) | payer BC ==
[2017-10-29] MEDS ORDERED: NORMAL SALINE 1000 ML 1,000 ML IV ONE (21:42)
[2017-10-29] MEDS ORDERED: ONDANSETRON HCL INJ/PF 4 MG/2 ML SDV IV ONE (21:42)
--- NOTE | 2017-10-29 22:22 | ER Document Report ---
ED General - General Chief Complaint: Vag Bleeding, +preg <12wks Stated Complaint: ABDOMINAL CRAMPING,VAGINAL BLEEDING Time Seen by Provider: 10/29/17 21:59 TRAVEL OUTSIDE OF THE [place] IN LAST 30 DAYS: No - HPI Notes: Patient is a 21-year-old female approximately 7 weeks who presents to the ED complaining of nausea, vomiting, intermittent epigastric burning, lower abdominal cramping, intermittent episodes of spotting 4 days. Patient states that she is still able to drink fluids, but has had decreased solid p.o. intake. Patient states that she does have a history of gastritis and the epigastric discomfort is not new to her. Patient denies any other significant past medical history. Patient states that she is urinating normally and having normal bowel movements. She denies any drug allergies. Patient states that she is a former smoker and has since quit since finding out that she is . Patient was evaluated at the [facility] department to get official testing a . Denies any headache, fever, neck pain, URI, sore throat, chest pain, palpitations, syncope, cough, shortness of breath, wheeze, dyspnea, diarrhea, urinary retention, dysuria, hematuria, back pain, loss of control of bowel or bladder, numbness/tingling, saddle anesthesia, muscle paralysis/weakness, or rash. - Related Data Allergies/Adverse Reactions: strawberry Allergy (Severe, Verified 07/30/17 19:51) N AND V Past Medical History - Social History Smoking Status: Former Smoker Family History: Arthritis, COPD, DM, Malignancy, Other - chf - Past Medical History Cardiac Medical History: Denies: Hx Coronary Artery Disease, Hx Heart Attack, Hx Hypertension Pulmonary Medical History: Denies: Hx Asthma, Hx Bronchitis, Hx COPD, Hx Pneumonia Neurological Medical History: Denies: Hx Cerebrovascular Accident, Hx Seizures Renal/ Medical History: Reports: Hx Ovarian Cysts. Denies: Hx Peritoneal Dialysis GI Medical History: Reports: Hx Gastroesophageal Reflux Disease, Hx Colonoscopy , Hx Endoscopic Retrograde Cholangio Musculoskeltal Medical History: Denies Hx Arthritis Psychiatric Medical History: Reports: Hx Anxiety, Hx Attention Deficit Hyperactivity Disorder Past Surgical History: Reports: Hx Cholecystectomy. Denies: Hx Hysterectomy - Immunizations Immunizations up to date: Yes Hx Diphtheria, Pertussis, Tetanus Vaccination: No Review of Systems - Review of Systems -: Yes All other systems reviewed and negative Physical Exam - Vital signs Vitals: Temp Pulse Resp BP Pulse Ox 98.6 F 82 16 120/68 99 10/29/17 21:34 10/29/17 21:34 10/29/17 21:34 10/29/17 21:34 10/29/17 21:34 - Notes Notes: PHYSICAL EXAMINATION: GENERAL: Well-appearing, well-nourished and in no acute distress. HEAD: Atraumatic, normocephalic. EYES: Pupils equal round and reactive to light, extraocular movements intact, sclera anicteric, conjunctiva are normal. ENT: Nares patent and without discharge. oropharynx clear without exudates. No tonsilar hypertrophy or erythema. Moist mucous membranes. NECK: Normal range of motion, supple without lymphadenopathy LUNGS: Breath sounds clear to auscultation bilaterally and equal. No wheezes rales or rhonchi. HEART: Regular rate and rhythm without murmurs, rubs, gallops. ABDOMEN: Soft, nondistended abdomen. No guarding, no rebound. No masses appreciated. Normal bowel sounds present. No CVA tenderness bilaterally. + mild tenderness to the epigastrum. + mild tenderness lower abdomen. No tenderness at [place] neg. Musculoskeletal: FROM to passive/active. Strength 5+/5. Extremities: No cyanosis, clubbing, or edema b/l. Peripheral pulses 2+. Capillary refill less than 3 seconds. NEUROLOGICAL: Normal speech, normal gait. Normal sensory, motor exams PSYCH: Normal mood, normal affect. SKIN: Warm, Dry, normal turgor, no rashes or lesions noted. Course - Re-evaluation Re-evalutation: 10/30/17 02:44 Patient is an afebrile, well-hydrated, 21-year-old female who presents to the ED with epigastric abdominal pain, suspect gastritis, as well as scant vaginal bleeding in early . Vitals are acceptable. PE is otherwise unremarkable. Patient is tolerating p.o. without any difficulties. CBC, CMP, urinalysis were unremarkable for any acute pathology. See hCG results. OB transvaginal ultrasound revealed an intrauterine with no complications. GI cocktail was given which improved epigastric discomfort. Patient also received fluids and Zofran. Low suspicion/risk for acute appendicitis, bowel obstruction, acute cholecystitis, acute cholangitis, perforated diverticulitis, incarcerated hernia, pancreatitis, perforated ulcer, peritonitis, sepsis, pelvic inflammatory disease, ectopic , tubo- ovarian abscess, ovarian torsion, or other systemic emergent condition at this time. Patient is aware that her condition can change from initial presentation and she needs to monitor symptoms closely and seek medical attention if any acute changes. I will send her home with a prescription for Zofran. Conservative measures otherwise for symptoms. Recheck with OBGYN in 3-5 days. Recheck with your PCM in 3-5 days. Return to the ED with any worsening/ concerning symptoms otherwise as reviewed in discharge. Patient is in agreement. - Vital Signs Vital signs: Temp Pulse Resp BP Pulse Ox 98.6 F 82 16 120/68 99 10/29/17 21:34 10/29/17 21:34 10/29/17 21:34 10/29/17 21:34 10/29/17 21:34 - Laboratory Result Diagrams: 10/29/17 23:05 10/29/17 23:05 Laboratory results interpreted by me: 10/29/17 23:05 Beta HCG, Quant 74421.00 H Discharge - Discharge Clinical Impression: Epigastric abdominal pain, Vaginal bleeding affecting early Condition: Stable Disposition: HOME, SELF-CARE Instructions: Antinausea Medication ([facility]), Low-Fat Diet ([facility]), Bleeding During Early ([facility]), Pelvic Pain in ([facility]) Additional Instructions: Maintain adequate fluid and food intake Avoid spices, caffeine, citrus, eating large meals, eating late at night. Zofran as needed tylenol if needed Monitor for any worsening symptoms Make sure you are staying hydrated enough to urinate and have normal BM's Recheck with your PCM/OBGYN in 3-5 days Consider consult with Gastroenterology for ongoing/worsening symptoms Return to the ED with any worsening symptoms and/or development of fever, headache, chest pain, palpitations, syncope, shortness of breath, trouble breathing, abdominal pain, n/v/d, blood in stool/urine, weakness, or other worsening symptoms that are concerning to you. Prescriptions: Ondansetron [Zofran Odt 4 mg Tablet] 1 - 2 tab PO Q4H PRN #15 tab.rapdis PRN Reason: For Nausea/Vomiting Referrals: [facility] [Provider Group] - Follow up in 3-5 days LISSET NICOLE MD [ACTIVE STAFF] - Follow up as needed
[2017-10-29 23:21] LABS: APPEARANCE,URINE SLIGHTLY-CLOUDY; BILIRUBIN,URINE NEGATIVE (NEGATIVE); COLOR,URINE YELLOW; GLUCOSE, URINE NEGATIVE (NEGATIVE); KETONES,URINE NEGATIVE (NEGATIVE); LEUKOCYTE ESTERASE,URINE NEGATIVE (NEGATIVE); NITRITE,URINE NEGATIVE (NEGATIVE); PROTEIN,URINE NEGATIVE (NEGATIVE); URINE SPECIFIC GRAVITY 1.009; UROBILINOGEN,URINE NEGATIVE mg/dL (<2.0)
[2017-10-29 23:22] LABS: ABSOLUTE BASOPHILS # (AUTO) 0.1 10^3/uL (0.0-0.2); ABSOLUTE EOSINOPHILS # (AUTO) 0.1 10^3/uL (0.0-0.6); ABSOLUTE LYMPHOCYTES (AUTO) 3.1 10^3/uL (0.5-4.7); ABSOLUTE MONOCYTES (AUTO) 0.7 10^3/uL (0.1-1.4); ABSOLUTE NEUT (AUTO) 5.9 10^3/uL (1.7-8.2); BASOPHILS % (AUTO) 0.6 % (0-2); EOSINOPHILS % (AUTO) 0.9 % (0-6); HEMOGLOBIN 13.5 g/dL (12.0-15.5); LYMPHOCYTES % (AUTO) 31.4 % (13-45); MEAN CORPUSCULAR HEMOGLOBIN 30.1 pg (27.0-33.4); MEAN CORPUSCULAR HGB CONC 34.6 g/dL (32.0-36.0); MEAN CORPUSCULAR VOLUME 87 fl (80-97); MONOCYTES % (AUTO) 7.3 % (3-13); PLATELET COUNT 210 10^3/uL (150-450); RED CELL DISTRIBUTION WIDTH 13.2 % (11.5-14.0); SEGMENTED NEUTROPHILS % (AUTO) 59.8 % (42-78); TOTAL CELLS COUNTED % (AUTO) 100 %; WHITE BLOOD COUNT 9.9 10^3/uL (4.0-10.5)
[2017-10-29 23:34] LABS: ALANINE AMINOTRANSFERASE 22 U/L (9-52); ALBUMIN 4.8 g/dL (3.5-5.0); ALKALINE PHOSPHATASE 59 U/L (38-126); ANION GAP 11 (5-19); ASPARTATE AMINO TRANSFERASE 19 U/L (14-36); BILIRUBIN,DIRECT 0.1 mg/dL (0.0-0.4); BILIRUBIN,TOTAL 0.4 mg/dL (0.2-1.3); BLOOD UREA NITROGEN 8 mg/dL (7-20); CALCIUM 9.9 mg/dL (8.4-10.2); CARBON DIOXIDE 26 mmol/L (22-30); CHLORIDE 101 mmol/L (98-107); GLUCOSE 85 mg/dL (75-110); LIPASE 97.3 U/L (23-300); POTASSIUM 3.6 mmol/L (3.6-5.0); SODIUM 138.3 mmol/L (137-145); TOTAL PROTEIN 7.3 g/dL (6.3-8.2)
--- NOTE | 2017-10-30 02:20 | RADIOLOGY REPORT (SQ) ---
EXAM DESCRIPTION: U/S OB TRANSVAG W/DOPPLER CLINICAL HISTORY: 21 years, Female, cramping, intermittent spotting, COMPARISON: 04/08/17 TECHNIQUE: Transvaginal LIMITATIONS: None. FINDINGS: Living intrauterine fetus measures 7w1d based on crown-rump length of 1.0 cm with MUNDO of 06/16/18. Cardiac activity is one 73 bpm. Cervical length is 3 cm. Ovaries are not directly visualized. No significant free fluid. IMPRESSION: Living intrauterine fetus measures 7w1d. No evidence of complication.
[2017-10-30] MEDS ORDERED: MAG HYDROX/AL HYDROX/SIMETH SUSP 30 ML UDCUP PO ONE (02:44)
[2017-10-30] MEDS ORDERED: METOCLOPRAMIDE HCL ORAL SOLN 10 MG/10 ML UDCUP PO ONE (02:44)
[2017-10-30] MEDS ORDERED: LIDOCAINE 2% VISCOUS SOLN 20 ML UDCUP PO ONE (02:44)
[2017-10-30 03:28] VITALS: BP 102/52
== END 2017-10-30 02:48 | disposition home or self-care (01) ==
LOC: ER 21:28
DX: O46.91 Antepartum hemorrhage, unspecified, first trimester (principal); O26.891 Other specified pregnancy related conditions, first trimester; R10.13 Epigastric pain; R11.2 Nausea with vomiting, unspecified; R10.30 Lower abdominal pain, unspecified; Z87.891 Personal history of nicotine dependence; Z3A.01 Less than 8 weeks gestation of pregnancy
CPT/HCPCS: 99284; 96360; 86900; 86901; 36415; 87086; 84702; 83690; 85025; 80053; 81001; 76817; 93976; J7030

== ENCOUNTER 2017-12-24 18:16 | Emergency (ER) | payer BC ==
[2017-12-24] MEDS ORDERED: NORMAL SALINE 1000 ML 1,000 ML IV ONE (18:20)
--- NOTE | 2017-12-24 18:20 | ER Document Report ---
ED Psych Disorder / Suicide - General Mode of Arrival: Ambulatory Information source: Patient TRAVEL OUTSIDE OF THE [place] IN LAST 30 DAYS: No <ADDISON CISNEROS - Last Filed: 12/24/17 18:46> <IBETH MUHAMMAD - Last Filed: 12/24/17 21:04> - General Stated Complaint: DIFFICULTY BREATHING Time Seen by Provider: 12/24/17 18:19 Notes: Patient is a 22-year-old female who presents to the emergency department today secondary to a panic attack with syncope after seeing a snake. Patient was carried in through the EMS door by two friends after having passing out. Patient is hyperventilating, uncooperative, and repeating "snake, snake, snake" . Friends state the patient did not hit her head when passing out. (ADDISON CISNEROS) - Related Data Allergies/Adverse Reactions: strawberry Allergy (Severe, Verified 07/30/17 19:51) N AND V Past Medical History - General Information source: Patient, [facility] Records - Social History Smoking Status: Never Smoker Cigarette use (# per day): No Frequency of alcohol use: None Drug Abuse: None Lives with: Family Family History: Arthritis, COPD, DM, Malignancy, Other - chf Renal/ Medical History: Reports: Hx Ovarian Cysts GI Medical History: Reports: Hx Gastroesophageal Reflux Disease, Hx Colonoscopy , Hx Endoscopic Retrograde Cholangio Psychiatric Medical History: Reports: Hx Anxiety, Hx Attention Deficit Hyperactivity Disorder Past Surgical History: Reports: Hx Cholecystectomy - Immunizations Immunizations up to date: Yes Hx Diphtheria, Pertussis, Tetanus Vaccination: No <ADDISON CISNEROS - Last Filed: 12/24/17 18:46> Review of Systems - Review of Systems Constitutional: No symptoms reported EENT: No symptoms reported Cardiovascular: No symptoms reported Respiratory: No symptoms reported Gastrointestinal: No symptoms reported Genitourinary: No symptoms reported Female Genitourinary: No symptoms reported Musculoskeletal: No symptoms reported Skin: No symptoms reported Hematologic/Lymphatic: No symptoms reported Neurological/Psychological: See HPI, Anxiety - "saw a snake" -: Yes All other systems reviewed and negative <ADDISON CISNEROS - Last Filed: 12/24/17 18:46> Physical Exam - Vital signs Interpretation: Tachycardic, Tachypneic - General General appearance: Lethargic - Respiratory Respiratory status: Tachypnea Breath sounds: Normal - Cardiovascular Rhythm: Regular, Tachycardia - Abdominal Inspection: Normal Tenderness: Nontender - Extremities General upper extremity: Normal inspection, Normal ROM General lower extremity: Normal inspection, Normal ROM - Neurological Rusty Coma Scale Eye Opening: To Pain [place] Coma Scale Verbal: Confused Rusty Coma Scale Motor: Localizes to Pain Rusty Coma Scale Total: 11 - Psychological Associated symptoms: Anxious <IBETH MUHAMMAD - Last Filed: 12/24/17 21:04> - Vital signs Vitals: Resp Pulse Ox 32 H 100 12/24/17 18:20 12/24/17 18:20 Course - Laboratory Result Diagrams: 12/24/17 18:20 12/24/17 18:20 <ADDISON CISNEROS - Last Filed: 12/24/17 18:46> - Laboratory Result Diagrams: 12/24/17 18:20 12/24/17 18:20 <IBETH MUHAMMAD - Last Filed: 12/24/17 21:04> - Re-evaluation Re-evalutation: 12/24/17 19:15 Patient is a 22-year-old female who presents initially unresponsive after passing out after hyperventilating 1 seeing a snake. Patient has returned to baseline. Blood work within normal limits. Taking p.o. without difficulty. Patient states that she is supposed to see a counselor for anxiety this week. Requests medication for anxiety. She will be discharged home with Vistaril. States that she is taken Zyprexa in the past but that did not agree with her. No distress. Stable for discharge. Return if worsening or concerning symptoms. (IBETH MUHAMMAD) - Vital Signs Vital signs: Temp Pulse Resp BP Pulse Ox 11 L 119/71 100 12/24/17 19:00 12/24/17 19:00 12/24/17 19:01 - Laboratory Laboratory results interpreted by me: 12/24/17 18:20 Carbon Dioxide 19 L Calcium 10.5 H Discharge <ADDISON CISNEROS - Last Filed: 12/24/17 18:46> <IBETH MUHAMMAD - Last Filed: 12/24/17 21:04> - Discharge Clinical Impression: Panic attack Condition: Stable Disposition: HOME, SELF-CARE Instructions: Panic Attack ([facility]) Additional Instructions: Please follow-up with your mental health provider as scheduled. Prescriptions: Hydroxyzine Pamoate [Vistaril 25 mg Capsule] 25 mg PO BIDP PRN #14 capsule PRN Reason: Scribe Attestation: 12/24/17 21:04 I personally performed the services described in the documentation, reviewed and edited the documentation which was dictated to the scribe in my presence, and it accurately records my words and actions. (IBETH MUHAMMAD) Scribe Documentation - Scribe Written by Rocky:: Rocky Lucas, 12/24/2017 1849 acting as scribe for :: Sherlyn <ADDISON CISNEROS - Last Filed: 12/24/17 18:46>
[2017-12-24] MEDS ORDERED: LORAZEPAM INJ 2 MG/1 ML VIAL IV ONE (18:22)
[2017-12-24] MEDS ORDERED: LORAZEPAM INJ 2 MG/1 ML VIAL ONE (18:25)
[2017-12-24 18:46] LABS: ABSOLUTE BASOPHILS # (AUTO) 0.1 10^3/uL (0.0-0.2); ABSOLUTE EOSINOPHILS # (AUTO) 0.1 10^3/uL (0.0-0.6); ABSOLUTE LYMPHOCYTES (AUTO) 4.2 10^3/uL (0.5-4.7); ABSOLUTE MONOCYTES (AUTO) 0.7 10^3/uL (0.1-1.4); BASOPHILS % (AUTO) 0.8 % (0-2); HEMOGLOBIN 13.2 g/dL (12.0-15.5); LYMPHOCYTES % (AUTO) 41.3 % (13-45); MEAN CORPUSCULAR HEMOGLOBIN 29.6 pg (27.0-33.4); MEAN CORPUSCULAR HGB CONC 34.7 g/dL (32.0-36.0); MEAN CORPUSCULAR VOLUME 85 fl (80-97); MONOCYTES % (AUTO) 7.1 % (3-13); PLATELET COUNT 284 10^3/uL (150-450); RED BLOOD COUNT 4.46 10^6/uL (3.72-5.28); SEGMENTED NEUTROPHILS % (AUTO) 49.8 % (42-78); TOTAL CELLS COUNTED % (AUTO) 100 %; WHITE BLOOD COUNT 10.1 10^3/uL (4.0-10.5)
[2017-12-24 19:03] LABS: ANION GAP 18 (5-19); BLOOD UREA NITROGEN 10 mg/dL (7-20); CALCIUM 10.5 mg/dL (8.4-10.2); CARBON DIOXIDE 19 mmol/L (22-30); CHLORIDE 105 mmol/L (98-107); GLUCOSE 106 mg/dL (75-110); POTASSIUM 3.6 mmol/L (3.6-5.0); SODIUM 142.2 mmol/L (137-145)
[2017-12-24 19:48] VITALS: BP 119/71
== END 2017-12-24 20:04 | disposition home or self-care (01) ==
LOC: ER 18:16
DX: F41.0 Panic disorder [episodic paroxysmal anxiety] (principal); R55 Syncope and collapse; Z91.018 Allergy to other foods
CPT/HCPCS: 99284; 96361; 96374; 36415; 84703; 85025; 80048; J2060; J7030

== ENCOUNTER 2018-02-01 18:24 | Emergency (ER) | payer BC ==
[2018-02-01 18:33] VITALS: BP 116/73
--- NOTE | 2018-02-01 19:32 | ER Document Report ---
ED Skin Rash/Insect Bite/Abscs - General Chief Complaint: Skin Problem Stated Complaint: SKIN ISSUE Time Seen by Provider: 02/01/18 19:16 Mode of Arrival: Ambulatory Information source: Patient Notes: 22-year-old female presented ED for complaint of bumps to bilateral arms back abdomen. She states she feels like symptoms crawling on and she is scratches at it and then the bumps appear. She states this started today. She states someone in her family has bedbug but she has not seen any bugs and they completely cleansed all the beds and linens. She states she was also at the beach recently. She states each time she looks down it seems like this more these bumps on her arms and legs. TRAVEL OUTSIDE OF THE [place] IN LAST 30 DAYS: No - HPI Patient complains to provider of: Possible insect bite Onset: This morning Onset/Duration: Gradual Quality of pain: No pain Severity: None Pain Level: Denies Skin Character: Rash - Small insect bites Exacerbated by: Denies Relieved by: Denies Similar symptoms previously: No Recently seen / treated by doctor: No - Related Data Allergies/Adverse Reactions: strawberry Allergy (Severe, Verified 02/01/18 18:26) N AND V Past Medical History - General Information source: Patient - Social History Smoking Status: Current Every Day Smoker Cigarette use (# per day): Yes Smoking Education Provided: Yes - 4 Minutes Frequency of alcohol use: None Drug Abuse: None Lives with: Family Family History: Arthritis, COPD, DM, Malignancy, Other - chf Patient has suicidal ideation: No Patient has homicidal ideation: No - Past Medical History Cardiac Medical History: Reports: None Pulmonary Medical History: Reports: None EENT Medical History: Reports: None Neurological Medical History: Reports: None Endocrine Medical History: Reports: None Renal/ Medical History: Reports: Hx Ovarian Cysts Malignancy Medical History: Reports: None GI Medical History: Reports: Hx Gastroesophageal Reflux Disease, Hx Colonoscopy , Hx Endoscopic Retrograde Cholangio Musculoskeltal Medical History: Reports None Skin Medical History: Reports None Psychiatric Medical History: Reports: Hx Anxiety, Hx Attention Deficit Hyperactivity Disorder Traumatic Medical History: Reports: None Infectious Medical History: Reports: None Past Surgical History: Reports: Hx Cholecystectomy - Immunizations Immunizations up to date: Yes Hx Diphtheria, Pertussis, Tetanus Vaccination: No Review of Systems - Review of Systems Constitutional: No symptoms reported EENT: No symptoms reported Cardiovascular: No symptoms reported Respiratory: No symptoms reported Gastrointestinal: No symptoms reported Genitourinary: No symptoms reported Female Genitourinary: No symptoms reported Musculoskeletal: No symptoms reported Skin: Rash - Insect bites Hematologic/Lymphatic: No symptoms reported Neurological/Psychological: No symptoms reported -: Yes All other systems reviewed and negative Physical Exam - Vital signs Vitals: Temp Pulse Resp BP Pulse Ox 98.9 F 78 18 116/73 100 02/01/18 18:30 02/01/18 18:30 02/01/18 18:30 02/01/18 18:30 02/01/18 18:30 Interpretation: Normal - General General appearance: Appears well, Alert - HEENT Head: Normocephalic, Atraumatic Eyes: Normal Pupils: PERRL - Respiratory Respiratory status: No respiratory distress Chest status: Nontender Breath sounds: Normal Chest palpation: Normal - Cardiovascular Rhythm: Regular Heart sounds: Normal auscultation Murmur: No - Abdominal Inspection: Normal Distension: No distension Bowel sounds: Normal Tenderness: Nontender Organomegaly: No organomegaly - Back Back: Normal, Nontender - Extremities General upper extremity: Normal inspection, Nontender, Normal color, Normal ROM , Normal temperature General lower extremity: Normal inspection, Nontender, Normal color, Normal ROM , Normal temperature, Normal weight bearing. No: Meng's sign - Neurological Neuro grossly intact: Yes Cognition: Normal Orientation: AAOx4 [place] Coma Scale Eye Opening: Spontaneous Rusty Coma Scale Verbal: Oriented [place] Coma Scale Motor: Obeys Commands [place] Coma Scale Total: 15 Speech: Normal Motor strength normal: LUE, RUE, LLE, RLE Sensory: Normal - Psychological Associated symptoms: Normal affect, Normal mood - Skin Skin Temperature: Warm Skin Moisture: Dry Skin Color: Normal Skin irregularity: Rash - Probable insect bites Location of irregularity: Abdomen, Chest, Back, Extremities Character of irregularity: Macular Course - Re-evaluation Re-evalutation: 02/01/18 20:59 Patient was given instructions for antihistamines and permethrin to treat the rash with possible insects. Patient was instructed to follow-up with her primary doctor and if she continues to have a problem to get a refill on this medication. She was given instructions on different insects and the cream to use. - Vital Signs Vital signs: Temp Pulse Resp BP Pulse Ox 98.9 F 78 18 116/73 100 02/01/18 18:30 02/01/18 18:30 02/01/18 18:30 02/01/18 18:30 02/01/18 18:30 Discharge - Discharge Clinical Impression: Insect bites Qualifiers: Encounter type: initial encounter Qualified Code(s): W57.XXXA - Bitten or stung by nonvenomous insect and other nonvenomous arthropods, initial encounter Condition: Stable Disposition: HOME, SELF-CARE Additional Instructions: Insect Bites You have been bitten by an insect. These bites can cause two types of swelling: an initial swelling due to insect saliva or injected poison, and a late reaction due to your body's allergic reaction. This initial local reaction may be uncomfortable but is not dangerous. Often there's an itchy "hive" at the bite location. This is treated with antihistamines, cold compresses, and resting the affected body part. The later reaction often develops about the second day. The entire area becomes very swollen, red, itchy, and tender. This is an allergic reaction. Your body is attacking the leftover insect saliva or venom. This type of allergy is unpleasant, but not dangerous. We treat this swelling with cortisone -type medicine. Sometimes we use antibiotics if we're worried about infection. Antihistamines help with the itch. If you develop a fever, chills, a red streak, or swollen glands in the area of the bite, infection may be starting. Return at once. Acetaminophen Acetaminophen may be taken for pain relief or fever control. It's much safer than aspirin, offering a wider range of "safe" dosages. It is safe during . Some brand names are Tylenol, Panadol, Datril, Anacin 3, Tempra, and Liquiprin. Acetaminophen can be repeated every four hours. The following are maximum recommended dosages: WEIGHT Dose Drops Elixir Chewable( 80mg) (LBS.) drprs=droppers tsp=teaspoon 6 40 mg .4 ml (1/2) 6-11 80 mg .8 ml (full) 1/2 tsp 1 tab 12-16 120 mg 1 1/2 drprs 3/4 tsp 1 1/2 tabs 17-23 160 mg 2 drprs 1 tsp 2 tabs 24-30 240 mg 3 drprs 1 1/2 tsp 3 tabs 30-35 320 mg 2 tsp 4 tabs 36-41 360 mg 2 1/4 tsp 4 1 /2 tabs 42-47 400 mg 2 1/2 tsp 5 tabs 48-53 480 mg 3 tsp 6 tabs 54-59 520 mg 3 1/4 tsp 6 1 /2 tabs 60-64 560 mg 3 1/2 tsp 7 tabs 65-70 600 mg 3 3/4 tsp 7 1 /2 tabs 71-76 640 mg 4 tsp 8 tabs 77-82 720 mg 4 1/2 tsp 9 tabs 83-88 800 mg 5 tsp 10 tabs >89 pounds or adults 650 mg to 900 mg Acetaminophen can be repeated every four hours. Maximum daily dose not to exceed 4000 mg. These maximum recommended dosages are slightly higher than the dosages written on the product container, but these dosages are very safe and well below the toxic dosage for acetaminophen. Anti-Mite Skin Creams Kwell (lindane 1%) and Elimite (permethrin 5%) kill insects such as fleas, ticks, lice, and mites. These creams are used for treating scabies, a mite that burrows into the skin. They can also be effective against lice. Apply the cream tonight to your entire body from the neck down. Don't allow children to apply the medicine themselves. Do NOT wash your hands after this treatment. Shower off 12 hours later. These medicines aren't harmful during or nursing. One treatment is usually enough to kill the mites; however, the itching will probably continue for another week. You may take diphenhydramine (Benadryl ) or another antihistamine medication for itching. Family members and intimate contacts may require treatment. Please return if you develop increasing swelling or redness, red streaks, tender lumps, fever, or drainage from a skin sore. FOLLOW-UP CARE: If you have been referred to a physician for follow-up care, call the physician s office for an appointment as you were instructed or within the next two days. If you experience worsening or a significant change in your symptoms, notify the physician immediately or return to the Emergency Department at any time for re-evaluation. Prescriptions: Permethrin [Elimite] 60 gm TP ONCE PRN #60 cream.gm. PRN Reason: Forms: Smoking Cessation Education Referrals: LEÓN GARCIA MD [Primary Care Provider] - Follow up as needed
== END 2018-02-01 19:37 | disposition home or self-care (01) ==
LOC: ER 18:24
DX: S40.862A Insect bite (nonvenomous) of left upper arm, initial encounter (principal); S40.861A Insect bite (nonvenomous) of right upper arm, initial encounter; S80.862A Insect bite (nonvenomous), left lower leg, initial encounter; S80.861A Insect bite (nonvenomous), right lower leg, initial encounter; W57.XXXA Bitten or stung by nonvenomous insect and other nonvenomous arthropods, initial encounter; F17.210 Nicotine dependence, cigarettes, uncomplicated; Z90.49 Acquired absence of other specified parts of digestive tract
CPT/HCPCS: 99282; 99406

== ENCOUNTER → 2018-03-22 | Outpatient (CLI) | payer BC ==
--- NOTE | 2018-03-22 11:53 | WOMENS IMAGING REPORT ---
EXAM DESCRIPTION: U/S PELVIS NON-OB COMPLETED DATE/TIME: 03/22/2018 8:47 am REASON FOR STUDY: LOWER ABDOMINAL PAIN R13.10 DYSPHAGIA, UNSPECIFIED COMPARISON: None. TECHNIQUE: Dynamic and static grayscale images acquired of the pelvis via transabdominal approach an d recorded on PACS. Additional selected color Doppler and spectral images recorded. LIMITATIONS: None. FINDINGS: UTERUS: Contour normal. No mass. ENDOMETRIAL STRIPE: No focal or generalized thickening. No masses. CERVIX: No nabothian cysts. RIGHT OVARY AND DOPPLER: Normal size. No worrisome masses. Normal arterial vascular flow without evid ence for torsion. LEFT OVARY AND DOPPLER: Normal size. No worrisome masses. Normal arterial vascular flow without evide nce for torsion. FREE FLUID: None noted. OTHER: No other significant finding. MEASUREMENTS: UTERUS: 8.0 x 3.2 x 5.2 cm ENDOMETRIAL STRIPE: 7 mm RIGHT OVARY: 3.3 x 2.1 x 2.8 cm LEFT OVARY: 3.9 x 1.7 x 3.0 cm IMPRESSION: NORMAL PELVIC ULTRASOUND BY TRANSABDOMINAL TECHNIQUE. TECHNICAL DOCUMENTATION: JOB ID: [id number] [employer]- All Rights Reserved Rev-01/13 Reading location - IP/workstation name: [email or web address]
== END ==
LOC: WI 07:18
PROVIDERS: ATTEND Physician Assistant Medical
DX: R10.30 Lower abdominal pain, unspecified (principal); R10.2 Pelvic and perineal pain; N94.10 Unspecified dyspareunia
CPT/HCPCS: 76856

== ENCOUNTER 2018-04-20 12:46 | Emergency (ER) | payer BC ==
[2018-04-20 12:59] VITALS: BP 117/69
--- NOTE | 2018-04-20 13:16 | ER Document Report ---
ED Medical Screen (RME) - General Chief Complaint: Pelvic Pain Stated Complaint: PELVIC PAIN Time Seen by Provider: 04/20/18 13:12 TRAVEL OUTSIDE OF THE [place] IN LAST 30 DAYS: No - HPI Notes: 04/20/18 13:15 Patient coming in with left lower quadrant nasal pain sharp shooting earlier this morning now resolved. States spotting at this time. Denies any discharge. - Related Data Allergies/Adverse Reactions: strawberry Allergy (Severe, Verified 04/20/18 12:52) N AND V Past Medical History - Past Medical History Cardiac Medical History: Denies: Hx Coronary Artery Disease, Hx Heart Attack, Hx Hypertension Pulmonary Medical History: Denies: Hx Asthma, Hx Bronchitis, Hx COPD, Hx Pneumonia Neurological Medical History: Denies: Hx Cerebrovascular Accident, Hx Seizures Renal/ Medical History: Reports: Hx Ovarian Cysts. Denies: Hx Peritoneal Dialysis GI Medical History: Reports: Hx Gastroesophageal Reflux Disease, Hx Colonoscopy , Hx Endoscopic Retrograde Cholangio Musculoskeltal Medical History: Denies Hx Arthritis Psychiatric Medical History: Reports: Hx Anxiety, Hx Attention Deficit Hyperactivity Disorder Past Surgical History: Reports: Hx Cholecystectomy. Denies: Hx Hysterectomy - Immunizations Immunizations up to date: Yes Hx Diphtheria, Pertussis, Tetanus Vaccination: No Review of Systems - Review of Systems Gastrointestinal: Abdominal pain Physical Exam - Vital signs Vitals: Temp Pulse Resp BP Pulse Ox 98.6 F 95 27 H 117/69 98 04/20/18 12:58 04/20/18 12:58 04/20/18 12:58 04/20/18 12:58 04/20/18 12:58 - Respiratory Respiratory status: No respiratory distress Chest status: Nontender Breath sounds: Normal Chest palpation: Normal Course - Vital Signs Vital signs: Temp Pulse Resp BP Pulse Ox 98.6 F 95 27 H 117/69 98 04/20/18 12:58 04/20/18 12:58 04/20/18 12:58 04/20/18 12:58 04/20/18 12:58 Doctor's Discharge - Discharge Referrals: TATO MCDANIEL PA-C [Primary Care Provider] - Follow up as needed
[2018-04-20 13:50] LABS: APPEARANCE,URINE SLIGHTLY-CLOUDY; BILIRUBIN,URINE NEGATIVE (NEGATIVE); COLOR,URINE YELLOW; GLUCOSE, URINE NEGATIVE (NEGATIVE); KETONES,URINE NEGATIVE (NEGATIVE); LEUKOCYTE ESTERASE,URINE NEGATIVE (NEGATIVE); NITRITE,URINE NEGATIVE (NEGATIVE); PROTEIN,URINE 30 mg/dL (NEGATIVE); URINE SPECIFIC GRAVITY 1.027
--- NOTE | 2018-04-20 15:47 | RADIOLOGY REPORT (SQ) ---
EXAM DESCRIPTION: U/S NON OB PEL TV W/DOPPLER COMPLETED DATE/TIME: 04/20/2018 3:34 pm REASON FOR STUDY: left adnexal pain COMPARISON: 03/22/2018 TECHNIQUE: Dynamic and static grayscale images acquired of the pelvis via transvaginal approach and recorded on PACS. Additional selected color Doppler and spectral images recorded. LIMITATIONS: None. FINDINGS: UTERUS: Contour normal. No mass. ENDOMETRIAL STRIPE: No focal or generalized thickening. No masses. CERVIX: No nabothian cysts. RIGHT OVARY AND DOPPLER: Normal size. No worrisome masses. Normal arterial vascular flow without evid ence for torsion. LEFT OVARY AND DOPPLER: Normal size. No worrisome masses. Normal arterial vascular flow without evide nce for torsion. FREE FLUID: Small amount. OTHER: No other significant finding. MEASUREMENTS: UTERUS: 6.5 x 4.3 x 3.6 cm ENDOMETRIAL STRIPE: 5 mm RIGHT OVARY: 2.9 x 2.6 x 1.5 cm LEFT OVARY: 2.9 x 1.9 x 1.7 cm IMPRESSION: NORMAL TRANSVAGINAL PELVIC ULTRASOUND. TECHNICAL DOCUMENTATION: JOB ID: [id number]- All Rights Reserved Rev-01/13 Reading location - IP/workstation name: [email or web address]
[2018-04-20 15:49] LABS: T.VAGINALIS (WET MOUNT) NO TRICHOMONAS SEEN
[2018-04-20 15:52] LABS: RBCS (WET MOUNT) RARE RBCS SEEN; WBCS (WET MOUNT) RARE WBCS SEEN; YEAST (WET MOUNT) NO YEAST SEEN
[2018-04-20] MEDS ORDERED: KETOROLAC TROMETHAMINE 60 MG/2 ML SDV IM ONE (16:07)
[2018-04-20 17:13] LABS: CHLAM PCR NOT DETECTED (NOT DETECT); GON PCR NOT DETECTED (NOT DETECT)
--- NOTE | 2018-04-20 17:21 | ER Document Report ---
ED General - General Chief Complaint: Pelvic Pain Stated Complaint: PELVIC PAIN Time Seen by Provider: 04/20/18 13:12 Mode of Arrival: Ambulatory Information source: Patient Notes: 22-year-old female 0 who presents to the emergency room with pelvic pain. Patient has had similar episodes in the past with sharp lower abdominal pains which last for 10-30 minutes and then gradually get better. She states that tonight's was particularly severe. At the time of my interview, she has no abdominal complaints. She is having some vaginal spotting at this time. She denies any vaginal discharge. TRAVEL OUTSIDE OF THE [place] IN LAST 30 DAYS: No - HPI Onset: Just prior to arrival Onset/Duration: Sudden Quality of pain: Dull Severity: Moderate Pain Level: 3 Associated symptoms: denies: Chest pain, Fever, Shortness of breath Exacerbated by: Denies Relieved by: Denies Similar symptoms previously: Yes Recently seen / treated by doctor: Yes - Related Data Allergies/Adverse Reactions: strawberry Allergy (Severe, Verified 04/20/18 12:52) N AND V Past Medical History - General Information source: Patient - Social History Smoking Status: Current Every Day Smoker Cigarette use (# per day): Yes - Half a pack per day Chew tobacco use (# tins/day): No Frequency of alcohol use: Rare Drug Abuse: None Lives with: Family Family History: Arthritis, COPD, DM, Malignancy, Other - chf Patient has suicidal ideation: No Patient has homicidal ideation: No - Past Medical History Cardiac Medical History: Denies: Hx Coronary Artery Disease, Hx Heart Attack, Hx Hypertension Pulmonary Medical History: Denies: Hx Asthma, Hx Bronchitis, Hx COPD, Hx Pneumonia Neurological Medical History: Denies: Hx Cerebrovascular Accident, Hx Seizures Renal/ Medical History: Reports: Hx Ovarian Cysts. Denies: Hx Peritoneal Dialysis GI Medical History: Reports: Hx Gastroesophageal Reflux Disease, Hx Colonoscopy , Hx Endoscopic Retrograde Cholangio Musculoskeletal Medical History: Denies Hx Arthritis Psychiatric Medical History: Reports: Hx Anxiety, Hx Attention Deficit Hyperactivity Disorder Past Surgical History: Reports: Hx Cholecystectomy. Denies: Hx Hysterectomy - Immunizations Immunizations up to date: Yes Hx Diphtheria, Pertussis, Tetanus Vaccination: No Review of Systems - Review of Systems Constitutional: denies: Chills, Fever EENT: No symptoms reported Cardiovascular: denies: Chest pain, Palpitations, Heart racing Respiratory: denies: Cough, Short of breath Gastrointestinal: Abdominal pain, Diarrhea. denies: Vomiting Genitourinary: No symptoms reported Female Genitourinary: See HPI Musculoskeletal: No symptoms reported Skin: No symptoms reported Hematologic/Lymphatic: No symptoms reported Neurological/Psychological: No symptoms reported Physical Exam - Vital signs Vitals: Temp Pulse Resp BP Pulse Ox 98.6 F 95 27 H 117/69 98 04/20/18 12:58 04/20/18 12:58 04/20/18 12:58 04/20/18 12:58 04/20/18 12:58 Notes: Physical exam: GENERAL: A 2-year-old female, alert and oriented 3, no acute distress. I HEAD: Atraumatic, normocephalic. EYES: Pupils equal round and reactive to light, extraocular movements intact, sclera anicteric, conjunctiva are normal. ENT: TMs normal, nares patent, oropharynx clear without exudates. Moist mucous membranes. NECK: Normal range of motion, supple without obvious mass or JVD. LUNGS: Breath sounds clear to auscultation bilaterally and equal. No wheezes rales or rhonchi. HEART: Regular rate and rhythm without murmurs, rubs or gallops. ABDOMEN: Soft, normoactive bowel sounds. No tenderness to palpation. No guarding, no rebound. No masses appreciated. Pelvic: Performed with PA student: External genitalia normal, cervical motion tenderness, no adnexal mass, no significant vaginal discharge. EXTREMITIES: Normal range of motion, no pitting or edema. No clubbing or cyanosis. NEUROLOGICAL: Cranial nerves II through XII grossly intact. Normal speech, moving all extremities. PSYCH: Normal mood, normal affect. SKIN: Warm, Dry, normal turgor, no rashes or lesions noted. Course - Vital Signs Vital signs: Temp Pulse Resp BP Pulse Ox 98.6 F 95 27 H 117/69 98 04/20/18 12:58 04/20/18 12:58 04/20/18 12:58 04/20/18 12:58 04/20/18 12:58 - Laboratory Laboratory results interpreted by me: 04/20/18 13:24 Urine Protein 30 H Urine Blood LARGE H Urine Urobilinogen 2.0 H - Diagnostic Test Radiology reviewed: Image reviewed, Reports reviewed - Pelvic ultrasound shows normal anatomy without any evidence of ovarian cysts. Discharge - Discharge Clinical Impression: Pelvic pain Condition: Stable Disposition: HOME, SELF-CARE Additional Instructions: As we discussed, the ultrasound of the ovaries and the uterus look quite good. Your blood tests were good as well. The home companion will be able to see these results as they are connected to this computer system. Follow-up as planned and keep your appointment with the home companion. The only labs not back yet or the cultures and we will call you if they are positive. Return to the emergency room for worsening pain, fever, vomiting or any concerns or getting worse. Forms: Return to School Referrals: TATO MCDANIEL PA-C [Primary Care Provider] - Follow up as needed ALVAREZ BARFIELD MD [ACTIVE STAFF] - Follow up as needed ([facility] is the number [facility]: Keep your appointment as planned.)
== END 2018-04-20 17:55 | disposition home or self-care (01) ==
LOC: ER 12:46
DX: R10.2 Pelvic and perineal pain (principal); R19.7 Diarrhea, unspecified; F17.210 Nicotine dependence, cigarettes, uncomplicated; Z91.018 Allergy to other foods; Z87.42 Personal history of other diseases of the female genital tract; Z87.19 Personal history of other diseases of the digestive system; Z90.49 Acquired absence of other specified parts of digestive tract
CPT/HCPCS: 99284; 96372; 87210; 81025; 81001; 87491; 87591; 76830; 93976; J1885

== ENCOUNTER 2018-10-12 22:02 | Emergency (ER) | payer BC ==
[2018-10-12 23:08] LABS: ABSOLUTE EOSINOPHILS # (AUTO) 0.1 10^3/uL (0.0-0.6); ABSOLUTE LYMPHOCYTES (AUTO) 2.7 10^3/uL (0.5-4.7); ABSOLUTE MONOCYTES (AUTO) 0.5 10^3/uL (0.1-1.4); ABSOLUTE NEUT (AUTO) 6.5 10^3/uL (1.7-8.2); BASOPHILS % (AUTO) 0.5 % (0-2); EOSINOPHILS % (AUTO) 0.7 % (0-6); HEMATOCRIT 36.7 % (36.0-47.0); HEMOGLOBIN 12.7 g/dL (12.0-15.5); LYMPHOCYTES % (AUTO) 27.3 % (13-45); MEAN CORPUSCULAR HEMOGLOBIN 29.8 pg (27.0-33.4); MEAN CORPUSCULAR HGB CONC 34.6 g/dL (32.0-36.0); MEAN CORPUSCULAR VOLUME 86 fl (80-97); MONOCYTES % (AUTO) 5.4 % (3-13); PLATELET COUNT 228 10^3/uL (150-450); RED BLOOD COUNT 4.26 10^6/uL (3.72-5.28); RED CELL DISTRIBUTION WIDTH 13.1 % (11.5-14.0); SEGMENTED NEUTROPHILS % (AUTO) 66.1 % (42-78); TOTAL CELLS COUNTED % (AUTO) 100 %; WHITE BLOOD COUNT 9.9 10^3/uL (4.0-10.5)
[2018-10-12 23:32] LABS: ALANINE AMINOTRANSFERASE 21 U/L (9-52); ALBUMIN 4.8 g/dL (3.5-5.0); ALKALINE PHOSPHATASE 66 U/L (38-126); ANION GAP 9 (5-19); ASPARTATE AMINO TRANSFERASE 20 U/L (14-36); BILIRUBIN,DIRECT 0.1 mg/dL (0.0-0.4); BILIRUBIN,TOTAL 0.5 mg/dL (0.2-1.3); BLOOD UREA NITROGEN 11 mg/dL (7-20); CALCIUM 9.7 mg/dL (8.4-10.2); CARBON DIOXIDE 29 mmol/L (22-30); CHLORIDE 105 mmol/L (98-107); GLUCOSE 85 mg/dL (75-110); POTASSIUM 3.9 mmol/L (3.6-5.0); SODIUM 142.7 mmol/L (137-145); TOTAL PROTEIN 7.3 g/dL (6.3-8.2)
--- NOTE | 2018-10-12 23:51 | RADIOLOGY REPORT (SQ) ---
CLINICAL HISTORY: preg, bleeding, lower ab pain COMPARISON: None. TECHNIQUE: US TRANSVAGINAL on 10/12/2018 10:44 PM BACKFILLER FINDINGS: The uterus measures 6.8 cm in length. There is no evidence of IUP. Right ovary measures 3.1 x 3.2 x 2.4 cm and contains a 1.7 x 2.5 x 1.5 cm cyst with small amount of debris within. Left ovary measures 3.4 x 1.8 x 1.9 cm there is there is patent flow to both ovaries. There is small amount of free pelvic fluid. Adnexa. IMPRESSION: No evidence of an IUP. A definite ectopic is not seen nor cannot be excluded.
[2018-10-13] MEDS ORDERED: MAG HYDROX/AL HYDROX/SIMETH SUSP 30 ML UDCUP PO ONE (00:26)
[2018-10-13] MEDS ORDERED: LIDOCAINE 2% VISCOUS SOLN 20 ML UDCUP PO ONE (00:26)
[2018-10-13] MEDS ORDERED: FAMOTIDINE 20 MG TABLET PO ONE (00:26)
[2018-10-13] MEDS ORDERED: SUCRALFATE 1 GM TABLET PO ONE (00:26)
[2018-10-13] MEDS ORDERED: METOCLOPRAMIDE HCL ORAL SOLN 10 MG/10 ML UDCUP PO ONE (00:26)
--- NOTE | 2018-10-13 00:28 | ER Document Report ---
ED General - General Chief Complaint: Abdominal Cramping Stated Complaint: ABDOMINAL PAIN Time Seen by Provider: 10/12/18 22:40 Primary Care Provider: TATO MCDANIEL PA-C [Primary Care Provider] - Follow up in 3-5 days Notes: Patient is a 22-year-old female with a past medical history of gastritis, prior cholecystectomy 2 years ago, presents with 10-12 hours of upper abdominal pain with associated nausea and vomiting. Abdominal pain is described as an aching, burning pain that has gradually improved since onset. Patient states that her symptoms started shortly after waking up and have progressed throughout the day. Nothing seems to improve her symptoms. Any attempt of p.o. intake worsens her symptoms. Has had similar symptoms in the past with gastritis although states that she was very concerned this could be related to a positive test that she took at home earlier today. She has not seen her primary care physician regarding today's concerns. TRAVEL OUTSIDE OF THE [place] IN LAST 30 DAYS: No - Related Data Allergies/Adverse Reactions: strawberry Allergy (Severe, Verified 04/20/18 12:52) N AND V Past Medical History - General Information source: Patient - Social History Smoking Status: Current Every Day Smoker Frequency of alcohol use: Occasional Drug Abuse: None Lives with: Spouse/Significant other Family History: Arthritis, COPD, DM, Malignancy, Other - chf Patient has suicidal ideation: No Patient has homicidal ideation: No - Past Medical History Cardiac Medical History: Denies: Hx Coronary Artery Disease, Hx Heart Attack, Hx Hypertension Pulmonary Medical History: Denies: Hx Asthma, Hx Bronchitis, Hx COPD, Hx Pneumonia Neurological Medical History: Denies: Hx Cerebrovascular Accident, Hx Seizures Renal/ Medical History: Reports: Hx Ovarian Cysts. Denies: Hx Peritoneal Dialysis GI Medical History: Reports: Hx Gastroesophageal Reflux Disease, Hx Colonoscopy, Hx Endoscopic Retrograde Cholangio Musculoskeletal Medical History: Denies Hx Arthritis Psychiatric Medical History: Reports: Hx Anxiety, Hx Attention Deficit Hyperactivity Disorder Past Surgical History: Reports: Hx Cholecystectomy. Denies: Hx Hysterectomy - Immunizations Immunizations up to date: Yes Hx Diphtheria, Pertussis, Tetanus Vaccination: No Review of Systems - Review of Systems Notes: Constitutional: Negative for fever. HENT: Negative for sore throat. Eyes: Negative for visual changes. Cardiovascular: Negative for chest pain. Respiratory: Negative for shortness of breath. Gastrointestinal: Positive for upper abdominal pain, nausea and vomiting Genitourinary: Negative for dysuria. Musculoskeletal: Negative for back pain. Skin: Negative for rash. Neurological: Negative for headaches, weakness or numbness. 10 point ROS negative except as marked above and in HPI. Physical Exam - Vital signs Vitals: Temp Pulse Resp BP Pulse Ox 98.4 F 71 16 135/79 H 99 10/12/18 22:35 10/12/18 22:35 10/12/18 22:35 10/12/18 22:35 10/12/18 22:35 Interpretation: Normal Notes: PHYSICAL EXAMINATION: GENERAL: Well-appearing, well-nourished and in no acute distress. HEAD: Atraumatic, normocephalic. EYES: Pupils equal round and reactive to light, extraocular movements intact, sclera anicteric, conjunctiva are normal. ENT: nares patent, oropharynx clear without exudates. Moist mucous membranes. NECK: Normal range of motion, supple without lymphadenopathy LUNGS: Breath sounds clear to auscultation bilaterally and equal. No wheezes rales or rhonchi. HEART: Regular rate and rhythm without murmurs ABDOMEN: Soft, mild epigastric abdominal discomfort on palpation but no other localized areas of tenderness, normoactive bowel sounds. No guarding, no rebound. No masses appreciated. EXTREMITIES: Normal range of motion, no pitting or edema. No cyanosis. NEUROLOGICAL: No focal neurological deficits. Moves all extremities spontaneously and on command. PSYCH: Normal mood, normal affect. SKIN: Warm, Dry, normal turgor, no rashes or lesions noted. Course - Re-evaluation Re-evalutation: 10/13/18 00:25 Patient presents with epigastric abdominal pain with associated nausea. Patient initially was concerned that she was although we have confirmed that the patient is not . Transvaginal ultrasound likewise unremarkable. Patient has no focal abdominal tenderness on examination. Patient is 2 years status post cholecystectomy removing biliary pathology from differential. Lipase is normal. No LFT changes. Based on history and exam, I do not suspect ACS, pulmonary embolus, SBO, mesenteric ischemia, acute pancreatitis, biliary pathology, or an abdominal aortic dissection. Patient has had improvement of symptoms here with a GI cocktail. At this time will discharge with return precautions and follow-up recommendations. Verbal discharge instructions given a the bedside and opportunity for questions given. Medication warnings reviewed. Patient is in agreement with this plan and has verbalized understanding of return precautions and the need for primary care follow-up in the next 24-72 hours. - Vital Signs Vital signs: Temp Pulse Resp BP Pulse Ox 98.4 F 71 16 135/79 H 99 10/12/18 22:35 10/12/18 22:35 10/12/18 22:35 10/12/18 22:35 10/12/18 22:35 - Laboratory Result Diagrams: 10/12/18 23:00 10/12/18 23:00 - Diagnostic Test Radiology reviewed: Reports reviewed Discharge - Discharge Clinical Impression: Epigastric abdominal pain, Nausea Gastritis Qualifiers: Gastritis type: unspecified gastritis Chronicity: acute Gastritis bleeding: without bleeding Qualified Code(s): K29.00 - Acute gastritis without bleeding Condition: Good Disposition: HOME, SELF-CARE Additional Instructions: Your symptoms appear to be most consistent with stomach or upper intestinal irritation. Please begin taking famotidine 40 mg in the morning and 40 mg at night. Take Carafate prior to meals. You may also take medicine such as Pepto- Bismol or Tums to assist with your pain. Please return to emergency department immediately if you have worsening of your pain, shortness of breath, vomiting, become unable to exert yourself due to pain or difficulty breathing, you pass out, or have any pain that radiates into your arms, jaw, or back. Please also return if you have any additional symptoms that are concerning to you. As we have discussed, the most important thing is lifestyle changes. You need to avoid smoking, sodas, tea, coffee, alcohol, spicy foods, and acidic foods such as citrus fruits, tomato based products, berries, and most fruit juices. Prescriptions: Famotidine 40 mg PO BID #60 tablet Sucralfate [Carafate 1 gm Tablet] 1 gm PO ACHS #120 tablet Referrals: TATO MCDANIEL PA-C [Primary Care Provider] - Follow up in 3-5 days
[2018-10-13 00:46] LABS: LIPASE 94.9 U/L (23-300)
[2018-10-13 01:24] VITALS: BP 111/74
== END 2018-10-13 01:24 | disposition home or self-care (01) ==
LOC: ER 22:02
DX: K29.00 Acute gastritis without bleeding (principal); R10.13 Epigastric pain; R11.2 Nausea with vomiting, unspecified; F17.200 Nicotine dependence, unspecified, uncomplicated; Z32.02 Encounter for pregnancy test, result negative; Z90.49 Acquired absence of other specified parts of digestive tract; Z87.19 Personal history of other diseases of the digestive system; Z91.018 Allergy to other foods
CPT/HCPCS: 99284; 36415; 84702; 83690; 85025; 80053; 76817; J3490

== ENCOUNTER 2019-02-24 15:18 | Emergency (ER) | payer BC ==
[2019-02-24] MEDS ORDERED: PROMETHAZINE HCL 25 MG TABLET PO ONE (15:42)
[2019-02-24] MEDS ORDERED: DIPHENHYDRAMINE HCL 25 MG CAPSULE PO ONE (15:42)
--- NOTE | 2019-02-24 15:46 | ER Document Report ---
ED Medical Screen (RME) - General Chief Complaint: Anxiety Stated Complaint: ANXIETY Time Seen by Provider: 02/24/19 15:36 Primary Care Provider: TATO MCDANIEL PA-C [Primary Care Provider] - Follow up as needed Mode of Arrival: Ambulatory Information source: Patient Notes: Patient presents to the emergency department with complaints of fingers tingling heart racing. Patient has history of anxiety. She was on medication several years ago but they gave her nightmares so she quit taking them. Patient also reports that her dog was put down on Tuesday, Patient also reports that she received a B12 injection today at work. She reports the clinic was short for their $goal so she went ahead and bought an injection. EMS was contacted they did evaluate her. Patient is talking very quickly. Complaints of other symptoms such as fever vomiting diarrhea but reports some nausea. Man in the room with her says she has not had anything to eat since Tuesday. I have greeted and performed a rapid initial assessment of this patient. A comprehensive ED assessment and evaluation of the patient, analysis of test results and completion of the medical decision making process will be conducted by additional ED providers. Dictation of this chart was performed using voice recognition software; therefore, there may be some unintended grammatical errors. TRAVEL OUTSIDE OF THE [place] IN LAST 30 DAYS: No - Related Data Allergies/Adverse Reactions: strawberry Allergy (Severe, Verified 02/24/19 15:20) N AND V Past Medical History - Past Medical History Cardiac Medical History: Denies: Hx Coronary Artery Disease, Hx Heart Attack, Hx Hypertension Pulmonary Medical History: Denies: Hx Asthma, Hx Bronchitis, Hx COPD, Hx Pneumonia Neurological Medical History: Denies: Hx Cerebrovascular Accident, Hx Seizures Renal/ Medical History: Reports: Hx Ovarian Cysts. Denies: Hx Peritoneal Dialysis GI Medical History: Reports: Hx Gastroesophageal Reflux Disease, Hx Colonoscopy, Hx Endoscopic Retrograde Cholangio Musculoskeltal Medical History: Denies Hx Arthritis Psychiatric Medical History: Reports: Hx Anxiety, Hx Attention Deficit Hyperactivity Disorder Past Surgical History: Reports: Hx Cholecystectomy. Denies: Hx Hysterectomy - Immunizations Immunizations up to date: Yes Hx Diphtheria, Pertussis, Tetanus Vaccination: No Physical Exam - Vital signs Vitals: Temp Pulse Resp BP Pulse Ox 98.1 F 107 H 16 141/75 H 98 02/24/19 15:23 02/24/19 15:23 02/24/19 15:23 02/24/19 15:23 02/24/19 15:23 Course - Vital Signs Vital signs: Temp Pulse Resp BP Pulse Ox 98.1 F 107 H 16 141/75 H 98 02/24/19 15:23 02/24/19 15:23 02/24/19 15:23 02/24/19 15:23 02/24/19 15:23 Doctor's Discharge - Discharge Referrals: TATO MCDANIEL PA-C [Primary Care Provider] - Follow up as needed
--- NOTE | 2019-02-24 16:32 | ER Document Report ---
ED General - General Chief Complaint: Anxiety Stated Complaint: ANXIETY Time Seen by Provider: 02/24/19 15:36 Primary Care Provider: TATO MCDANIEL PA-C [Primary Care Provider] - Follow up in 3-5 days Mode of Arrival: Ambulatory TRAVEL OUTSIDE OF THE [place] IN LAST 30 DAYS: No - HPI Notes: 23 year old female to the ED with C/O possible allergic reaction and anxiety attack. 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 She states that after that she started to feel like her heart was racing. She left work and then the heart racing got worse, she started to feel worse. States that she had worsening chest tightness and her hands started to curl. States she felt hot as well. States that she is concerned that she was having a reaction to the injection. Denies rash and is feeling better after benadryl given through triage. Denies SI, HI. States she has a history of anxiety but not currently on any medications, because she was last on Zyprexa and it gave her hallucinations. - Related Data Allergies/Adverse Reactions: strawberry Allergy (Severe, Verified 02/24/19 15:20) N AND V Past Medical History - General Information source: Patient - Social History Smoking Status: Never Smoker Frequency of alcohol use: None Drug Abuse: None Family History: Arthritis, COPD, DM, Malignancy, Other - chf Patient has suicidal ideation: No Patient has homicidal ideation: No - Past Medical History Cardiac Medical History: Denies: Hx Coronary Artery Disease, Hx Heart Attack, Hx Hypertension Pulmonary Medical History: Denies: Hx Asthma, Hx Bronchitis, Hx COPD, Hx Pneumonia Neurological Medical History: Denies: Hx Cerebrovascular Accident, Hx Seizures Renal/ Medical History: Reports: Hx Ovarian Cysts. Denies: Hx Peritoneal Dialysis GI Medical History: Reports: Hx Gastroesophageal Reflux Disease, Hx Colonoscopy, Hx Endoscopic Retrograde Cholangio Musculoskeletal Medical History: Denies Hx Arthritis Psychiatric Medical History: Reports: Hx Anxiety, Hx Attention Deficit Hyperactivity Disorder Past Surgical History: Reports: Hx Cholecystectomy. Denies: Hx Hysterectomy - Immunizations Immunizations up to date: Yes Hx Diphtheria, Pertussis, Tetanus Vaccination: No Review of Systems - Review of Systems Constitutional: denies: Chills, Fever EENT: No symptoms reported Cardiovascular: Chest pain, Palpitations, Heart racing. denies: Syncope, Dizziness Respiratory: Short of breath. denies: Cough Gastrointestinal: Nausea. denies: Abdominal pain, Diarrhea, Vomiting Genitourinary: No symptoms reported Musculoskeletal: No symptoms reported Skin: No symptoms reported Hematologic/Lymphatic: No symptoms reported Neurological/Psychological: Anxiety, Hallucinations, Suicidal ideation. denies: Homicidal ideation -: Yes All other systems reviewed and negative Physical Exam - Vital signs Vitals: Temp Pulse Resp BP Pulse Ox 98.1 F 107 H 16 141/75 H 98 02/24/19 15:23 02/24/19 15:23 02/24/19 15:23 02/24/19 15:23 02/24/19 15:23 Interpretation: Normal - General General appearance: Appears well, Alert - HEENT Head: Normocephalic, Atraumatic Eyes: Normal Pupils: PERRL - Respiratory Respiratory status: No respiratory distress Chest status: Nontender Breath sounds: Normal Chest palpation: Normal - Cardiovascular Rhythm: Regular Heart sounds: Normal auscultation Murmur: No - Abdominal Inspection: Normal Distension: No distension Bowel sounds: Normal Tenderness: Nontender Organomegaly: No organomegaly - Back Back: Normal, Nontender - Extremities General upper extremity: Normal inspection, Nontender, Normal color, Normal ROM, Normal temperature General lower extremity: Normal inspection, Nontender, Normal color, Normal ROM, Normal temperature, Normal weight bearing. No: Meng's sign - Neurological Neuro grossly intact: Yes Cognition: Normal Orientation: AAOx4 Rusty Coma Scale Eye Opening: Spontaneous Rusty Coma Scale Verbal: Oriented [place] Coma Scale Motor: Obeys Commands [place] Coma Scale Total: 15 Speech: Normal Motor strength normal: LUE, RUE, LLE, RLE Sensory: Normal - Psychological Associated symptoms: Anxious. No: Auditory hallucinations, Methodist preoccupation, Tangential speech, Visual hallucinations - patient with mildly pressured speech. She is not exhibiting SI, HI. She states she feels much better after benadryl - Skin Skin Temperature: Warm Skin Moisture: Dry Skin Color: Normal Course - Vital Signs Vital signs: Temp Pulse Resp BP Pulse Ox 98.7 F 80 16 104/64 100 02/24/19 20:15 02/24/19 20:15 02/24/19 20:15 02/24/19 20:15 02/24/19 20:15 - Laboratory Result Diagrams: 02/24/19 17:49 02/24/19 17:49 Laboratory results interpreted by me: 02/24/19 17:49 WBC 11.6 H Seg Neutrophils % 80.0 H Absolute Neutrophils 9.3 H - Diagnostic Test Radiology reviewed: Image reviewed, Reports reviewed - EKG Interpretation by Me EKG shows normal: Sinus rhythm Rate: Normal - 96 Rhythm: NSR When compared to previous EKG there are: No significant change Additional EKG results interpreted by me: No STEMI, t wave inversions in inferior leads. Normal axis, no LVH. - Transfer of Care Notes: Patient has done well here in the ER. She has reassuring labs, CXR, and EKG. She does not exhibit any SI or HI. Her anxiety attack has resolved. I have encouraged her to follow with psych for outpatient and having given her a list to choose her provider. I have also encouraged her to return if her symptoms worsen at all. She is insightful and I believe she is safe for discharge. Impression: Anxiety, possible adverse reaction to drug. Will discharge home. PCP and psych follow up. Return if worse. Patient agrees with the plan. Discharge - Discharge Clinical Impression: Anxiety, Adverse reaction to drug Condition: Good Disposition: HOME, SELF-CARE Instructions: Anxiety ([facility]) Additional Instructions: Rest at home. Follow up with one of the community clinics outpatient. Return if worse. Push fluids. Forms: Return to Work Referrals: TATO MCDANIEL PA-C [Primary Care Provider] - Follow up in 3-5 days
--- NOTE | 2019-02-24 17:53 | RADIOLOGY REPORT (SQ) ---
EXAM DESCRIPTION: CHEST 2 VIEWS COMPLETED DATE/TIME: 02/24/2019 5:42 pm REASON FOR STUDY: palpitations COMPARISON: 07/12/2011 EXAM PARAMETERS: NUMBER OF VIEWS: two views TECHNIQUE: Digital Frontal and Lateral radiographic views of the chest acquired. RADIATION DOSE: NA LIMITATIONS: none FINDINGS: LUNGS AND PLEURA: No opacities, masses or pneumothorax. No pleural effusion. MEDIASTINUM AND HILAR STRUCTURES: No masses or contour abnormalities. HEART AND VASCULAR STRUCTURES: Heart normal size. No evidence for failure. BONES: No acute findings. HARDWARE: None in the chest. OTHER: No other significant finding. IMPRESSION: No acute abnormality of the lungs. TECHNICAL DOCUMENTATION: JOB ID: [id number] [employer]- All Rights Reserved Reading location - IP/workstation name: [email or web address]
[2019-02-24 17:59] LABS: ABSOLUTE LYMPHOCYTES (AUTO) 1.7 10^3/uL (0.5-4.7); ABSOLUTE MONOCYTES (AUTO) 0.5 10^3/uL (0.1-1.4); ABSOLUTE NEUT (AUTO) 9.3 10^3/uL (1.7-8.2); BASOPHILS % (AUTO) 0.3 % (0-2); EOSINOPHILS % (AUTO) 0.2 % (0-6); HEMATOCRIT 39.1 % (36.0-47.0); HEMOGLOBIN 13.2 g/dL (12.0-15.5); LYMPHOCYTES % (AUTO) 14.9 % (13-45); MEAN CORPUSCULAR HEMOGLOBIN 29.3 pg (27.0-33.4); MEAN CORPUSCULAR HGB CONC 33.9 g/dL (32.0-36.0); MEAN CORPUSCULAR VOLUME 86 fl (80-97); MONOCYTES % (AUTO) 4.6 % (3-13); PLATELET COUNT 230 10^3/uL (150-450); RED BLOOD COUNT 4.52 10^6/uL (3.72-5.28); TOTAL CELLS COUNTED % (AUTO) 100 %; WHITE BLOOD COUNT 11.6 10^3/uL (4.0-10.5)
[2019-02-24 18:19] LABS: ALANINE AMINOTRANSFERASE 19 U/L (9-52); ALBUMIN 4.8 g/dL (3.5-5.0); ALKALINE PHOSPHATASE 69 U/L (38-126); ANION GAP 9 (5-19); ASPARTATE AMINO TRANSFERASE 22 U/L (14-36); BILIRUBIN,DIRECT 0.2 mg/dL (0.0-0.4); BILIRUBIN,TOTAL 0.8 mg/dL (0.2-1.3); BLOOD UREA NITROGEN 7 mg/dL (7-20); CALCIUM 9.9 mg/dL (8.4-10.2); CARBON DIOXIDE 28 mmol/L (22-30); CHLORIDE 104 mmol/L (98-107); GLUCOSE 88 mg/dL (75-110); LIPASE 61.2 U/L (23-300); SODIUM 140.9 mmol/L (137-145)
[2019-02-24 18:21] LABS: ALCOHOL < 10 mg/dL (NONE DETECTED)
[2019-02-24 18:42] LABS: URINE AMPHETAMINES SCREEN NEGATIVE; URINE BARBITURATES SCREEN NEGATIVE; URINE BENZODIAZEPINES SCREEN NEGATIVE; URINE COCAINE SCREEN NEGATIVE; URINE MARIJUANA (THC) SCREEN NEGATIVE; URINE METHADONE SCREEN NEGATIVE; URINE PHENCYCLIDINE SCREEN NEGATIVE
--- NOTE | 2019-02-25 00:23 | EKG REPORT ---
SEVERITY:- ABNORMAL ECG - SINUS RHYTHM CAITLYN, CONSIDER BIATRIAL ABNORMALITIES NONSPECIFIC T ABNORMALITIES, INFERIOR LEADS : Confirmed by: Corina Ribera 25-Feb-2019 00:22:38
[2019-02-25 01:47] VITALS: BP 104/64
== END 2019-02-24 20:15 | disposition home or self-care (01) ==
LOC: ER 15:18
DX: N30.00 Acute cystitis without hematuria (principal); E86.0 Dehydration; T78.40XA Allergy, unspecified, initial encounter; R21 Rash and other nonspecific skin eruption; J02.9 Acute pharyngitis, unspecified; R22.0 Localized swelling, mass and lump, head; F41.9 Anxiety disorder, unspecified; F17.200 Nicotine dependence, unspecified, uncomplicated
CPT/HCPCS: 36415; 71046; 80053; 80307; 83690; 84443; 84703; 85025; 93005; 93010; 99283

== ENCOUNTER 2019-02-27 14:03 | Emergency (ER) | payer BC ==
--- NOTE | 2019-02-27 14:58 | EKG REPORT ---
SEVERITY:- NORMAL ECG - SINUS RHYTHM : Confirmed by: Corina Ribera 27-Feb-2019 14:57:39
--- NOTE | 2019-02-27 14:59 | ER Document Report ---
ED Medical Screen (RME) - General Chief Complaint: Anxiety Stated Complaint: POSSIBLE ANXIETY Time Seen by Provider: 02/27/19 14:29 Primary Care Provider: TATO MCDANIEL PA-C [Primary Care Provider] - Follow up as needed Mode of Arrival: Ambulatory Information source: Patient TRAVEL OUTSIDE OF THE [place] IN LAST 30 DAYS: No - HPI Notes: 02/27/19 14:44 Patient is a 23 yr old female that presents to the emergency department for chief complaint of heart racing, chest pressure, epigastric pain that has been occurring for the last 3 days, was seen in the ED approximately 3 days ago for an allergic reaction for B12 injection that she received at work. He was evaluated and return to the ER that she had allergic reaction, Benadryl was given. Patient states that she has been taking Benadryl daily to help with histamine response, states that she is not sure exactly what is going on. Does have a history of anxiety. States worse within driving, after eating greasy pizza. Denies any fevers or chills, no nausea vomiting or diarrhea. Symptoms have become progressively worse. ROS: Other than noted above, the 12 point review of systems was reviewed with the patient and were negative, all pertinent findings are included in the HPI. PHYSICAL EXAMINATION: Vital signs reviewed. GENERAL: Well-appearing, well-nourished and in no acute distress. HEAD: Atraumatic, normocephalic. ENT: Nares patent NECK: Normal range of motion CV: tachycardia, normal rhythm LUNGS: No respiratory distress ABD: epigastric tenderness on palpation. no cva tenderness bilaterally Musculoskeletal: Normal range of motion NEUROLOGICAL: Normal speech PSYCH: Normal mood, normal affect. MDM: Patient seen and examined for rapid initial assessment. Vital signs reviewed. A comprehensive ED assessment and evaluation of the patient, analysis of test results and completion of the medical decision making process will be conducted by additional ED providers. *Note is created using voice recognition software and may contain spelling, syntax or grammatical errors. - Related Data Allergies/Adverse Reactions: strawberry Allergy (Severe, Verified 02/27/19 14:04) N AND V nitrofurantoin Allergy (Verified 02/27/19 14:28) b-12 Allergy (Uncoded 02/27/19 14:31) Past Medical History - Social History Chew tobacco use (# tins/day): No Frequency of alcohol use: Occasional Drug Abuse: None - Past Medical History Cardiac Medical History: Denies: Hx Coronary Artery Disease, Hx Heart Attack, Hx Hypertension Pulmonary Medical History: Denies: Hx Asthma, Hx Bronchitis, Hx COPD, Hx Pneumonia Neurological Medical History: Denies: Hx Cerebrovascular Accident, Hx Seizures Renal/ Medical History: Reports: Hx Ovarian Cysts. Denies: Hx Peritoneal Dialysis GI Medical History: Reports: Hx Gastroesophageal Reflux Disease, Hx Colonoscopy, Hx Endoscopic Retrograde Cholangio Musculoskeltal Medical History: Denies Hx Arthritis Psychiatric Medical History: Reports: Hx Anxiety, Hx Attention Deficit Hyperactivity Disorder Past Surgical History: Reports: Hx Cholecystectomy. Denies: Hx Hysterectomy - Immunizations Immunizations up to date: Yes Hx Diphtheria, Pertussis, Tetanus Vaccination: No Physical Exam - Vital signs Vitals: Temp Pulse Resp BP Pulse Ox 98.3 F 103 H 22 H 120/75 98 02/27/19 14:06 02/27/19 14:06 02/27/19 14:06 02/27/19 14:06 02/27/19 14:06 Course - Vital Signs Vital signs: Temp Pulse Resp BP Pulse Ox 98.3 F 103 H 22 H 120/75 98 02/27/19 14:06 02/27/19 14:06 02/27/19 14:06 02/27/19 14:06 02/27/19 14:06 Doctor's Discharge - Discharge Referrals: TATO MCDANIEL PA-C [Primary Care Provider] - Follow up as needed
[2019-02-27 15:10] LABS: ABSOLUTE EOSINOPHILS # (AUTO) 0.1 10^3/uL (0.0-0.6); ABSOLUTE LYMPHOCYTES (AUTO) 2.4 10^3/uL (0.5-4.7); ABSOLUTE MONOCYTES (AUTO) 0.6 10^3/uL (0.1-1.4); ABSOLUTE NEUT (AUTO) 6.7 10^3/uL (1.7-8.2); BASOPHILS % (AUTO) 0.5 % (0-2); EOSINOPHILS % (AUTO) 0.6 % (0-6); HEMATOCRIT 40.2 % (36.0-47.0); HEMOGLOBIN 13.6 g/dL (12.0-15.5); LYMPHOCYTES % (AUTO) 24.9 % (13-45); MEAN CORPUSCULAR HEMOGLOBIN 29.6 pg (27.0-33.4); MEAN CORPUSCULAR HGB CONC 33.9 g/dL (32.0-36.0); MEAN CORPUSCULAR VOLUME 87 fl (80-97); MONOCYTES % (AUTO) 5.8 % (3-13); PLATELET COUNT 227 10^3/uL (150-450); SEGMENTED NEUTROPHILS % (AUTO) 68.2 % (42-78); TOTAL CELLS COUNTED % (AUTO) 100 %; WHITE BLOOD COUNT 9.8 10^3/uL (4.0-10.5)
--- NOTE | 2019-02-27 15:13 | RADIOLOGY REPORT (SQ) ---
EXAM DESCRIPTION: CHEST 2 VIEWS COMPLETED DATE/TIME: 02/27/2019 3:01 pm REASON FOR STUDY: chest pressure COMPARISON: 02/24/2019 EXAM PARAMETERS: NUMBER OF VIEWS: two views TECHNIQUE: Digital Frontal and Lateral radiographic views of the chest acquired. RADIATION DOSE: NA LIMITATIONS: none FINDINGS: LUNGS AND PLEURA: No opacities, masses or pneumothorax. No pleural effusion. MEDIASTINUM AND HILAR STRUCTURES: No masses or contour abnormalities. HEART AND VASCULAR STRUCTURES: Heart normal size. No evidence for failure. BONES: No acute findings. HARDWARE: None in the chest. OTHER: No other significant finding. IMPRESSION: 1. No significant interval changes since the prior examination dated 02/24/2019. No acu te findings. TECHNICAL DOCUMENTATION: JOB ID: [id number] [employer]- All Rights Reserved Reading location - IP/workstation name: [email or web address]
[2019-02-27 15:23] LABS: APPEARANCE,URINE SLIGHTLY-CLOUDY; BILIRUBIN,URINE NEGATIVE (NEGATIVE); COLOR,URINE YELLOW; GLUCOSE, URINE NEGATIVE (NEGATIVE); KETONES,URINE 20 mg/dL (NEGATIVE); LEUKOCYTE ESTERASE,URINE NEGATIVE (NEGATIVE); NITRITE,URINE NEGATIVE (NEGATIVE); PROTEIN,URINE 30 mg/dL (NEGATIVE); URINE SPECIFIC GRAVITY 1.024; UROBILINOGEN,URINE NEGATIVE mg/dL (<2.0)
[2019-02-27 15:27] LABS: ALANINE AMINOTRANSFERASE 16 U/L (9-52); ALBUMIN 4.8 g/dL (3.5-5.0); ALKALINE PHOSPHATASE 63 U/L (38-126); ANION GAP 9 (5-19); ASPARTATE AMINO TRANSFERASE 23 U/L (14-36); BILIRUBIN,DIRECT 0.2 mg/dL (0.0-0.4); BILIRUBIN,TOTAL 0.9 mg/dL (0.2-1.3); BLOOD UREA NITROGEN 10 mg/dL (7-20); CALCIUM 9.5 mg/dL (8.4-10.2); CARBON DIOXIDE 27 mmol/L (22-30); CHLORIDE 104 mmol/L (98-107); CREATINE KINASE 59 U/L (30-135); GLUCOSE 83 mg/dL (75-110); LIPASE 71.1 U/L (23-300); POTASSIUM 3.8 mmol/L (3.6-5.0); SODIUM 139.9 mmol/L (137-145); TOTAL PROTEIN 7.8 g/dL (6.3-8.2)
[2019-02-27 15:30] LABS: C-REACTIVE PROTEIN < 5.0 mg/L (<10.0)
[2019-02-27 15:37] LABS: CREATINE KINASE MB < 0.22 ng/mL (<4.55); TROPONIN I < 0.012 ng/mL
--- NOTE | 2019-02-27 16:02 | RADIOLOGY REPORT (SQ) ---
EXAM DESCRIPTION: U/S ABDOMEN LIMITED W/O DOP COMPLETED DATE/TIME: 02/27/2019 3:47 pm REASON FOR STUDY: epigastric pain COMPARISON: CT abdomen pelvis 09/30/2016 TECHNIQUE: Dynamic and static grayscale images acquired of the abdomen and recorded on PACS. Additio nal selected color Doppler and spectral images recorded. RADIATION DOSE: None, ultrasound LIMITATIONS: None. FINDINGS: PANCREAS: Midline pancreas is unremarkable LIVER: No masses. Echotexture normal. LIVER VASCULATURE: Normal directional flow of the main portal vein and hepatic veins. GALLBLADDER: Surgically absent ULTRASOUND-DETECTED MCNULTY'S SIGN: Not applicable INTRAHEPATIC DUCTS AND COMMON DUCT: CBD and intrahepatic ducts normal caliber. No filling defects. INFERIOR VENA CAVA: Normal flow. AORTA: No aneurysm. RIGHT KIDNEY: Normal size. Normal echogenicity. No solid or suspicious masses. No hydronephrosis. No calcifications. PERITONEAL AND RIGHT PLEURAL SPACE: No ascites or effusions. OTHER: No other significant findings. IMPRESSION: POST CHOLECYSTECTOMY. OTHERWISE, UNREMARKABLE RIGHT UPPER QUADRANT ULTRASOUND. TECHNICAL DOCUMENTATION: JOB ID: [id number] [employer]- All Rights Reserved Reading location - IP/workstation name: [email or web address]
--- NOTE | 2019-02-27 16:44 | PSYCHOLOGICAL NOTE ---
Psych Note - Psych Note Date seen by psych provider: 02/27/19 Psych Note: Presenting Problem: Anxiety, got B12 Injection at work 02/24/19, increased anxiety since, reported immediately feeling light headed/fingers crunched up and got tingly., she came to the ED and was administered Benadryl. She admitted to having 3 more anxiety attacks since: once while driving/once at [facility] when she had to go to restroom/try to get away from people/still had to leave/palms were sweaty and again today while driving to work/had to turn around and return home. She reported Tuesday she did not take Benadryl but yesterday took two 25MG tabs a couple hours apart. She reported symptoms of chest pressure, heart racing. In the car she reported feeling panic, a howard, face flush, used deep breathing to try to control self, then felt like you do when you are really tired and can barely keep eyes open. She stated she does have severe stomach pain in V shape area of groin after periods and during ovulation (started after an last year) which she has been sent to OB and Gastroenterologists for. She noted she has gastritis and no gall bladder. She reported eating pizza and other greasy fast food still. She noted she used to see Dr. Santizo at [facility] where she was prescribed Zyprexa (made her have night terrors and see things) and Adderall 20MG daily (made her heart race) so she has not taken these medications since 2017. She reported she has an appointment with Dr. Lyons at [place] [id number] 04/02/19. 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 She denied SI/HI. No observed psychosis. Clear and oriented. She noted she had done some research on anxiety and learned some mindfulness/grounding techniques (saying out loud 5 things your observe in surroundings, touching 3 things in your surroundings). She noted oxygen and a cool place have helped with anxiety in the past as she had an episode last February where EMS picked her up on side of road. Another time medication and sleep helped. Diagnosis: Possible B12 injection reaction Psychosocial Stressors Unspecified Anxiety Disorder Medication recommendations made by the psychiatric medical provider, Dr. Julio MD., includes: Add Buspar 5MG twice a day for anxiety/calming effect/depression/sleep Impression/Plan: Patient is cleared from acute psychiatric services. She denied SI/HI and no observed psychosis. She was able to explain and express self clearly. She has an appointment with Dr. Lyons from [facility] for psychiatry services 04/02/19 and was provided the outpatient MH resource sheet which highlighted [facility] for outpatient services (possible sooner availability) as well as [facility] for crisis/talk therapy/linkage to other services and supports. Consulted with Dr. Lazcano regarding the management and care of patient. ED Physician in agreement with recommendations.
[2019-02-27 18:22] VITALS: BP 136/71
--- NOTE | 2019-02-27 19:06 | ER Document Report ---
ED General - General Chief Complaint: Anxiety Stated Complaint: POSSIBLE ANXIETY Time Seen by Provider: 02/27/19 14:29 Primary Care Provider: TATO MCDANIEL PA-C [Primary Care Provider] - Follow up as needed Mode of Arrival: Ambulatory Notes: Patient is a 23 yr old female that presents to the emergency department for chief complaint of heart racing, chest pressure, epigastric pain that has been occurring for the last 3 days, was seen in the ED approximately 3 days ago for an allergic reaction for B12 injection that she received at work. She was evaluated and return to the ER that she had allergic reaction, Benadryl was given. Patient states that she has been taking Benadryl daily to help with histamine response, states that she is not sure exactly what is going on. Does have a history of anxiety. States worse within driving, after eating greasy pizza. Denies any fevers or chills, no nausea vomiting or diarrhea. Symptoms have become progressively worse. Regards him as being moderate to severe in intensity. Intermittent in nature. Denies history of similar symptoms in the past prior to the past several days. TRAVEL OUTSIDE OF THE [place] IN LAST 30 DAYS: No - Related Data Allergies/Adverse Reactions: strawberry Allergy (Severe, Verified 02/27/19 14:04) N AND V nitrofurantoin Allergy (Verified 02/27/19 14:28) b-12 Allergy (Uncoded 02/27/19 14:31) Past Medical History - General Information source: Patient - Social History Smoking Status: Current Every Day Smoker Chew tobacco use (# tins/day): No Frequency of alcohol use: Occasional Drug Abuse: None Lives with: Spouse/Significant other Family History: Arthritis, COPD, DM, Malignancy, Other - chf Patient has suicidal ideation: No Patient has homicidal ideation: No - Past Medical History Cardiac Medical History: Denies: Hx Coronary Artery Disease, Hx Heart Attack, Hx Hypertension Pulmonary Medical History: Denies: Hx Asthma, Hx Bronchitis, Hx COPD, Hx Pneumonia Neurological Medical History: Denies: Hx Cerebrovascular Accident, Hx Seizures Renal/ Medical History: Reports: Hx Ovarian Cysts. Denies: Hx Peritoneal Dialysis GI Medical History: Reports: Hx Gastroesophageal Reflux Disease, Hx Colonoscopy, Hx Endoscopic Retrograde Cholangio Musculoskeletal Medical History: Denies Hx Arthritis Psychiatric Medical History: Reports: Hx Anxiety, Hx Attention Deficit Hyperactivity Disorder Past Surgical History: Reports: Hx Cholecystectomy. Denies: Hx Hysterectomy - Immunizations Immunizations up to date: Yes Hx Diphtheria, Pertussis, Tetanus Vaccination: No Review of Systems - Review of Systems Notes: Constitutional: Negative for fever. HENT: Negative for sore throat. Eyes: Negative for visual changes. Cardiovascular: Positive chest tightness Respiratory: Negative for shortness of breath. Gastrointestinal: Negative for abdominal pain, positive for nausea Genitourinary: Negative for dysuria. Musculoskeletal: Negative for back pain. Skin: Negative for rash. Neurological: Negative for headaches, weakness or numbness. 10 point ROS negative except as marked above and in HPI. Physical Exam - Vital signs Vitals: Temp Pulse Resp BP Pulse Ox 98.3 F 103 H 22 H 120/75 98 02/27/19 14:06 02/27/19 14:06 02/27/19 14:06 02/27/19 14:06 02/27/19 14:06 Interpretation: Tachycardic - Tachycardia is resolved at the time of my evaluation with a heart rate of 90, Tachypneic Notes: PHYSICAL EXAMINATION: GENERAL: Well-appearing, well-nourished and in no acute distress. HEAD: Atraumatic, normocephalic. EYES: Pupils equal round and reactive to light, extraocular movements intact, sclera anicteric, conjunctiva are normal. ENT: nares patent, oropharynx clear without exudates. Moist mucous membranes. NECK: Normal range of motion, supple without lymphadenopathy LUNGS: Breath sounds clear to auscultation bilaterally and equal. No wheezes rales or rhonchi. HEART: Regular rate and rhythm without murmurs ABDOMEN: Soft, nontender, normoactive bowel sounds. No guarding, no rebound. No masses appreciated. EXTREMITIES: Normal range of motion, no pitting or edema. No cyanosis. NEUROLOGICAL: No focal neurological deficits. Moves all extremities sp ontaneously and on command. PSYCH: Normal mood, normal affect. SKIN: Warm, Dry, normal turgor, no rashes or lesions noted. Course - Re-evaluation Re-evalutation: 02/27/19 19:09 Patient presents with multiple vague complaints that did not appear to be concerning for any acute life-threatening pathology. Vitals are within normal limits at time of discharge. Physical examination is unremarkable. Patient has tolerated oral intake without difficulty. Patient was not noted to be in distress at any point during their ER visit. At this time, based on the reassuring evaluation, I do not suspect an acute PR, pulmonary embolus, aortic dissection, acute intra-abdominal pathology, stroke, or sepsis.Will discharge with return precautions and follow-up recommendations. Verbal discharge instructions given a the bedside and opportunity for questions given. Medication warnings reviewed. Patient is in agreement with this plan and has verbalized understanding of return precautions and the need for primary care follow-up in the next 24-72 hours. - Vital Signs Vital signs: Temp Pulse Resp BP Pulse Ox 97.8 F 82 18 136/71 H 97 02/27/19 18:09 02/27/19 18:09 02/27/19 18:09 02/27/19 18:09 02/27/19 18:09 - Laboratory Result Diagrams: 02/27/19 14:48 02/27/19 14:48 Laboratory results interpreted by me: 02/27/19 14:48 Urine Protein 30 H Urine Ketones 20 H - Diagnostic Test Radiology results interpreted by me: 02/27/19 19:09 Chest x-ray: No acute infiltrate or pneumothorax - EKG Interpretation by Me Additional EKG results interpreted by me: 02/27/19 19:09 Sinus rhythm, rate 74, no ST elevations or depressions. QTC is 418. Discharge - Discharge Clinical Impression: Anxiety, Chest discomfort Adverse reaction to drug Qualifiers: Encounter type: initial encounter Qualified Code(s): T50.905A - Adverse effect of unspecified drugs, medicaments and biological substances, initial encounter Condition: Good Disposition: HOME, SELF-CARE Additional Instructions: Please return to the emergency room immediately if you experience any concerning symptoms including high fevers, severe headache, chest pain, difficulty breathing, abdominal pain, slurred speech, numbness or weakness in your arms or legs, or any other symptom that concerns you. Referrals: TATO MCDANIEL PA-C [Primary Care Provider] - Follow up as needed
== END 2019-02-27 19:27 | disposition home or self-care (01) ==
LOC: ER 14:03
DX: F41.9 Anxiety disorder, unspecified (principal); R07.89 Other chest pain; T50.905A Adverse effect of unspecified drugs, medicaments and biological substances, initial encounter; R10.13 Epigastric pain; F17.200 Nicotine dependence, unspecified, uncomplicated; Z88.8 Allergy status to other drugs, medicaments and biological substances; Z91.018 Allergy to other foods; Z88.1 Allergy status to other antibiotic agents
CPT/HCPCS: 36415; 71046; 76705; 80053; 81001; 81025; 82550; 82553; 83690; 84484; 85025; 86140; 93005; 93010; 99285

== ENCOUNTER 2019-03-02 19:31 | Emergency (ER) | payer BC ==
[2019-03-02] MEDS ORDERED: DIPHENHYDRAMINE HCL 25 MG CAPSULE PO ONE (23:50)
[2019-03-02] MEDS ORDERED: PREDNISONE 20 MG TABLET PO ONE (23:51)
--- NOTE | 2019-03-02 23:56 | ER Document Report ---
ED General - General Chief Complaint: Hives Stated Complaint: RASH Time Seen by Provider: 03/02/19 22:54 Primary Care Provider: TATO MCDANIEL PA-C [Primary Care Provider] - Follow up in 3-5 days Notes: Patient is a pleasant 23-year-old female presents with complaint of hives-like reactions mostly in her legs but also on her extreme upper extremities. She has a small amount on her torso. None on her face. No swelling. Tongue or throat. She says that she has had some intermittent problems ever since receiving a vitamin B12 shot a week ago. This is the first time that she has had significant hives. She does mention that she start using a new soap this morning and then a few hours later developed the hives. She has no other complaints at this time. Patient also has been doing with anxiety. She said she has occasional panic attacks. TRAVEL OUTSIDE OF THE [place] IN LAST 30 DAYS: No - Related Data Allergies/Adverse Reactions: strawberry Allergy (Severe, Verified 03/02/19 22:34) N AND V nitrofurantoin Allergy (Verified 03/02/19 22:34) Sulfa (Sulfonamide Antibiotics) Allergy (Verified 03/02/19 22:34) b-12 Allergy (Uncoded 03/02/19 22:34) Past Medical History - Social History Smoking Status: Current Every Day Smoker Frequency of alcohol use: Rare Drug Abuse: None Family History: Arthritis, COPD, DM, Malignancy, Other - chf Patient has suicidal ideation: No Patient has homicidal ideation: No - Past Medical History Cardiac Medical History: Denies: Hx Coronary Artery Disease, Hx Heart Attack, Hx Hypertension Pulmonary Medical History: Denies: Hx Asthma, Hx Bronchitis, Hx COPD, Hx Pneumonia Neurological Medical History: Denies: Hx Cerebrovascular Accident, Hx Seizures Renal/ Medical History: Reports: Hx Ovarian Cysts. Denies: Hx Peritoneal Dialysis GI Medical History: Reports: Hx Gastroesophageal Reflux Disease, Hx Colonoscopy, Hx Endoscopic Retrograde Cholangio Musculoskeletal Medical History: Denies Hx Arthritis Psychiatric Medical History: Reports: Hx Anxiety, Hx Attention Deficit Hyperactivity Disorder Past Surgical History: Reports: Hx Cholecystectomy. Denies: Hx Hysterectomy - Immunizations Immunizations up to date: Yes Hx Diphtheria, Pertussis, Tetanus Vaccination: No Review of Systems - Review of Systems Notes: My Normal Review Basic REVIEW OF SYSTEMS: CONSTITUTIONAL : Denies fever, chills, or sweats. Denies recent illness. EENT: Denies eye, ear, throat, or mouth pain or symptoms. Denies nasal or sinus congestion. RESPIRATORY: Denies cough, cold, or chest congestion. Denies shortness of breath, difficulty breathing, or wheezing. GASTROINTESTINAL: Denies abdominal pain. Denies nausea, vomiting, or diarrhea. MUSCULOSKELETAL: Denies neck or back pain or joint pain or swelling. SKIN: Hives NEUROLOGICAL: Denies altered mental status or loss of consciousness. Denies headache. Denies weakness or paralysis or loss of use of either side. Denies problems with gait or speech. Denies sensory or motor loss. PSYCHIATRIC: Some anxiety and panic attacks. ALL OTHER SYSTEMS REVIEWED AND NEGATIVE. Physical Exam - Vital signs Vitals: Temp Pulse Resp BP Pulse Ox 98.6 F 99 16 113/72 97 03/02/19 19:38 03/02/19 19:38 03/02/19 19:38 03/02/19 19:38 03/02/19 19:38 - Notes Notes: General Appearance: Well nourished, alert, cooperative, no acute distress, no obvious discomfort. Currently calm and appropriate Vitals: reviewed, See vital signs table. Eyes: PERRL, EOMI, Conjuctiva clear Mouth: No decreasd moisture Throat: No tonsillar inflammation, No airway obstruction, No lymphadenopathy Neck: Supple, no neck tenderness, No thyromegaly Lungs: No wheezing, No rales, No rhonci, No accessory muscle use, good air exchange bilaterally. Heart: Normal rate, Regular rythm, No murmur, no rub Extremities: good pulses in all extremities, no edema. Skin: Patient has multiple areas hives along her lower extremities. She has some scattered hives over the upper extremities. She has a few hive-like lesions over the anterior torso. She does not have that of face. Areas are blanchable. They are pruritic. Neuro: speech clear, oriented x 3, normal affect, responds appropriately to questions. Course - Re-evaluation Re-evalutation: 03/03/19 23:29 Patient is segmental for itching. We will place her on tapering dose prednisone to help with allergic reaction. I encouraged her to stop using the new soap. Informed her that is not percent clear without this could be related to her previous vitamin B12 injection however I think is less likely related to vitamin B12 injection just because she had that a week ago and she is just now getting hives today. Suspect may be more related to use of the soap being that the hives started a few hours after using the new soap. Encouraged her to have a low threshold to return to the ER if she has difficulty breathing, difficulty swallowing, worsening hives, or if she feels unwell. Patient agrees with plan will be discharged home. Dictation of this chart was performed using voice recognition software; therefore, there may be some unintended grammatical errors. - Vital Signs Vital signs: Temp Pulse Resp BP Pulse Ox 97.9 F 90 18 124/78 100 03/03/19 00:21 03/03/19 00:03/03/19 00:03/03/19 00:03/03/19 00:21 Discharge - Discharge Clinical Impression: Anxiety Allergic reaction Qualifiers: Encounter type: initial encounter Qualified Code(s): T78.40XA - Allergy, un specified, initial encounter Condition: Good Disposition: HOME, SELF-CARE Additional Instructions: The exact cause of your allergic reaction is not 100% clear. It could be related to the change in soaps that occurred today. Please use the old soap which did not cause any problems for you in the past. It is unlikely the rash is related to the vitamin B12 shot but it is not 100% impossible. It would just be very rare for hives to occur 1 week after receiving a medication. Nonetheless the treatment is the same. Treatment is Benadryl 25 mg every 6 hours for itching. We have placed you on prednisone. Please take this as prescribed. Please return to the ER if you have difficulty breathing, difficulty swallowing, or feel unwell. I have prescribed you the BuSpar for your anxiety. Please follow-up with your doctor this coming week. Please keep an appointment with the psychiatrist. Prescriptions: Buspirone HCl [Buspar 5 mg Tablet] 1 tab PO BID #30 tab RX: Prednisone [Deltasone 10 mg Tablet] 10 mg PO ASDIR PRN #20 tablet PRN Reason: Forms: Return to Work Referrals: TATO MCDANIEL PA-C [Primary Care Provider] - Follow up in 3-5 days
[2019-03-03 00:23] VITALS: BP 124/78
== END 2019-03-03 00:25 | disposition home or self-care (01) ==
LOC: ER 19:31
DX: T78.40XA Allergy, unspecified, initial encounter (principal); L50.9 Urticaria, unspecified; F41.9 Anxiety disorder, unspecified; F41.0 Panic disorder [episodic paroxysmal anxiety]; F17.200 Nicotine dependence, unspecified, uncomplicated; Z91.018 Allergy to other foods; Z88.2 Allergy status to sulfonamides; Z88.8 Allergy status to other drugs, medicaments and biological substances; Z88.1 Allergy status to other antibiotic agents
CPT/HCPCS: 99282; J7512

== ENCOUNTER 2019-03-04 14:28 | Emergency (ER) | payer BC ==
--- NOTE | 2019-03-04 14:58 | ER Document Report ---
ED Medical Screen (RME) - General Chief Complaint: Allergic Reaction Stated Complaint: RASH, SORE THROAT, SWELLING Time Seen by Provider: 03/04/19 14:43 Primary Care Provider: TATO MCDANIEL PA-C [Primary Care Provider] - Follow up as needed Mode of Arrival: Ambulatory Information source: Patient Notes: Patient presents today with reports that her hives are coming back. Also reports her lips are tingly and it feels like she is having trouble swallowing. Patient reports she was evaluated in the emergency department on Tuesday after use she used a new body wash with hives. She was treated with steroids since been taking the steroids and the Benadryl since that time. Also reports she had a B12 shot about a week ago. Patient is speaking in a clear voice taking sips of water without problems but reports that he does take 2 sips of water to get her prednisone and Benadryl down. I have greeted and performed a rapid initial assessment of this patient. A comprehensive ED assessment and evaluation of the patient, analysis of test results and completion of the medical decision making process will be conducted by additional ED providers. Dictation of this chart was performed using voice recognition software; therefore, there may be some unintended grammatical errors. TRAVEL OUTSIDE OF THE [place] IN LAST 30 DAYS: No - Related Data Allergies/Adverse Reactions: strawberry Allergy (Severe, Verified 03/04/19 14:30) N AND V nitrofurantoin Allergy (Verified 03/04/19 14:30) Sulfa (Sulfonamide Antibiotics) Allergy (Verified 03/04/19 14:30) b-12 Allergy (Uncoded 03/04/19 14:30) Past Medical History - Past Medical History Cardiac Medical History: Denies: Hx Coronary Artery Disease, Hx Heart Attack, Hx Hypertension Pulmonary Medical History: Denies: Hx Asthma, Hx Bronchitis, Hx COPD, Hx Pneumonia Neurological Medical History: Denies: Hx Cerebrovascular Accident, Hx Seizures Renal/ Medical History: Reports: Hx Ovarian Cysts. Denies: Hx Peritoneal Dialysis GI Medical History: Reports: Hx Gastroesophageal Reflux Disease, Hx Colonoscopy, Hx Endoscopic Retrograde Cholangio Musculoskeltal Medical History: Denies Hx Arthritis Psychiatric Medical History: Reports: Hx Anxiety, Hx Attention Deficit Hyperactivity Disorder Past Surgical History: Reports: Hx Cholecystectomy. Denies: Hx Hysterectomy - Immunizations Immunizations up to date: Yes Hx Diphtheria, Pertussis, Tetanus Vaccination: No Physical Exam - Vital signs Vitals: Temp Pulse Resp BP Pulse Ox 98.3 F 86 16 129/78 H 98 03/04/19 14:49 03/04/19 14:49 03/04/19 14:49 03/04/19 14:49 03/04/19 14:49 Course - Vital Signs Vital signs: Temp Pulse Resp BP Pulse Ox 98.3 F 86 16 129/78 H 98 03/04/19 14:49 03/04/19 14:49 03/04/19 14:49 03/04/19 14:49 03/04/19 14:49 Doctor's Discharge - Discharge Referrals: TATO MCDANIEL PANeginC [Primary Care Provider] - Follow up as needed
[2019-03-04 16:52] LABS: APPEARANCE,URINE HAZY; BILIRUBIN,URINE NEGATIVE (NEGATIVE); COLOR,URINE YELLOW; GLUCOSE, URINE NEGATIVE (NEGATIVE); KETONES,URINE NEGATIVE (NEGATIVE); LEUKOCYTE ESTERASE,URINE LARGE (NEGATIVE); NITRITE,URINE NEGATIVE (NEGATIVE); PROTEIN,URINE 30 mg/dL (NEGATIVE); URINE SPECIFIC GRAVITY 1.024
--- NOTE | 2019-03-04 17:17 | ER Document Report ---
ED General - General Chief Complaint: Allergic Reaction Stated Complaint: RASH, SORE THROAT, SWELLING Time Seen by Provider: 03/04/19 14:43 Primary Care Provider: TATO MCDANIEL PA-C [Primary Care Provider] - Follow up tomorrow Mode of Arrival: Ambulatory Notes: Patient is a 23-year-old female who presents to the emergency department with a chief complaint of tongue swelling, trouble laying, and a fast heart rate. She was seen here 1 week and 1 day ago and had an allergic reaction to a vitamin B12 shot. She then subsequently came back and was given prednisone and Benadryl. She states that she has been taking her Benadryl and she had her first dose of prednisone yesterday and today. The rash that she had is significantly better than her previous visits as per the photos on her father's phone. Patient does have a history of anxiety and has not been taking the BuSpar that she was prescribed when she was here for her anxiety. She states that she has had some anxiety. TRAVEL OUTSIDE OF THE [place] IN LAST 30 DAYS: No - Related Data Allergies/Adverse Reactions: strawberry Allergy (Severe, Verified 03/04/19 14:30) N AND V nitrofurantoin Allergy (Verified 03/04/19 14:30) Sulfa (Sulfonamide Antibiotics) Allergy (Verified 03/04/19 14:30) b-12 Allergy (Uncoded 03/04/19 14:30) Past Medical History - General Information source: Patient - Social History Smoking Status: Current Some Day Smoker Chew tobacco use (# tins/day): No Frequency of alcohol use: None Drug Abuse: None Family History: Arthritis, COPD, DM, Malignancy, Other - chf Patient has suicidal ideation: No Patient has homicidal ideation: No - Past Medical History Cardiac Medical History: Denies: Hx Coronary Artery Disease, Hx Heart Attack, Hx Hypertension Pulmonary Medical History: Denies: Hx Asthma, Hx Bronchitis, Hx COPD, Hx Pneumonia Neurological Medical History: Denies: Hx Cerebrovascular Accident, Hx Seizures Renal/ Medical History: Reports: Hx Ovarian Cysts. Denies: Hx Peritoneal Dialysis GI Medical History: Reports: Hx Gastroesophageal Reflux Disease, Hx Colonoscopy, Hx Endoscopic Retrograde Cholangio Musculoskeletal Medical History: Denies Hx Arthritis Psychiatric Medical History: Reports: Hx Anxiety, Hx Attention Deficit Hyperactivity Disorder Past Surgical History: Reports: Hx Cholecystectomy. Denies: Hx Hysterectomy - Immunizations Immunizations up to date: Yes Hx Diphtheria, Pertussis, Tetanus Vaccination: No Review of Systems - Review of Systems Notes: REVIEW OF SYSTEMS: CONSTITUTIONAL : Denies recent illness. Denies recent unintentional weight loss. Denies fever, chills, or sweats. EENT: See HPI CARDIOVASCULAR: See HPI RESPIRATORY: Denies shortness of breath, cough, congestion, difficulty breathing, or wheezing. GASTROINTESTINAL: Denies nausea, vomiting, and diarrhea. Denies abdominal pain. Denies constipation. GENITOURINARY: Denies difficulty urinating, burning, blood in urine, urgency or frequency. MUSCULOSKELETAL: Denies neck and back pain. Denies joint pain or swelling. SKIN: See HPI HEMATOLOGIC : Denies easy bruising or bleeding. LYMPHATIC: Denies swollen, painful, enlarged glands. NEUROLOGICAL: Denies no numbness or tingling denies weakness. Denies headache. Denies altered mental status. Denies alteration in speech. PSYCHIATRIC: Denies stress, anxiety, alteration in sleep patterns, or depression. All other systems reviewed and negative. Physical Exam - Vital signs Vitals: Temp Pulse Resp BP Pulse Ox 98.3 F 86 16 129/78 H 98 03/04/19 14:49 03/04/19 14:49 03/04/19 14:49 03/04/19 14:49 03/04/19 14:49 - Notes Notes: PHYSICAL EXAMINATION: GENERAL: Appears well, healthy, well-nourished, no acute distress. HEAD: Normocephalic, atraumatic. EYES: PERRL, conjunctiva normal, all extraocular movements intact, sclera nonicteric ENT: Moist mucous membranes. NECK: Supple, no noticeable swelling, redness, rash. Normal range of motion. LUNGS: Equal breath sounds bilaterally and clear to auscultation. No wheezes rales or rhonchi. CARDIOVASCULAR: S1-S2, regular rate, regular rhythm. Radial pulses 2+, normal. ABDOMEN: Normoactive bowel sounds. Soft, nontender, no guarding, no rebound tenderness, and no masses palpated. EXTREMITIES: Normal strength and range of motion, no pitting or edema. No cyanosis. NEUROLOGICAL: Moves all extremities upon command. Strength 5/5 in all extremities. PSYCH: Normal mood, normal affect. SKIN: Warm, dry. 3-4 small little red dots noted to bilateral lower legs the patient had her hives. Normal skin turgor. Course - Re-evaluation Re-evalutation: 03/04/19 16:23 At this time, I think anxiety has a lot to do with how the patient is feeling, as patient received the vitamin B12 shot here in the emergency department. Patient's rash is significantly better than before. I had a lengthy conversation with the parents and patient About the patient's nutrition and hydration status. The patient is not drinking very much, therefore I suspect she is having these problems. Her urinalysis from 27 February shows that she was dehydrated. We will send another urinalysis. Patient's heart rate is 86. I offered an EKG and the patient had refused. I offered labs and the patient refuses. 03/04/19 17:15 Patient is eating without difficulty. She is eating a cheese quesadilla in her room. Very low suspicion for an acute allergy. Patient's urinalysis shows a large amount of leukocytes in her urine. She states that she started to have some dysuria a few days ago. She will be started on Keflex and she will follow- up with her primary care provider and supervisor policy change clerks in regards to her allergic reaction. Follow-up precautions were given. Verbal discharge instructions were given to the patient. They verbalized understanding. They are stable for discharge. - Vital Signs Vital signs: Temp Pulse Resp BP Pulse Ox 98.3 F 80 20 120/75 100 03/04/19 14:49 03/04/19 15:45 03/04/19 15:45 03/04/19 15:45 03/04/19 15:45 - Laboratory Laboratory results interpreted by me: 03/04/19 16:30 Urine Protein 30 H Urine Urobilinogen 2.0 H Ur Leukocyte Esterase LARGE H Discharge - Discharge Clinical Impression: Dehydration Urinary tract infection Qualifiers: Urinary tract infection type: acute cystitis Hematuria presence: without hematuria Qualified Code(s): N30.00 - Acute cystitis without hematuria Condition: Stable Disposition: HOME, SELF-CARE Instructions: Cephalexin ([facility]), Urinary Tract Infection ([facility]) Additional Instructions: Your urine shows findings consistent with a urinary tract infection. Please take all the antibiotics as directed even if your symptoms have improved. Please follow-up with your primary care physician as needed. Return to emergency room if you develop fever >101F, persistent vomiting, become lethargic, have severe pain in your sides, or any other symptoms that are concerning to you. Please make sure you are drinking plenty of water. Make sure you are eating well. Please follow-up with your primary care provider in regards to this visit. You may want to follow-up with an supervisor policy change clerks to find out what you are allergic to. If you continue to have anxiety, please take your anxiety medication prescribed to you. Please follow-up with a counselor to help with your anxiety. Prescriptions: Cephalexin [Keflex] 500 mg PO BID #10 capsule Referrals: TATO MCDANIEL PA-C [Primary Care Provider] - Follow up tomorrow
[2019-03-04 17:50] VITALS: BP 123/72
== END 2019-03-04 17:51 | disposition home or self-care (01) ==
LOC: ER 14:28
DX: E86.0 Dehydration (principal); N30.00 Acute cystitis without hematuria; J02.9 Acute pharyngitis, unspecified; R21 Rash and other nonspecific skin eruption; Z88.2 Allergy status to sulfonamides
CPT/HCPCS: 81001; 87086; 99284